=== PATIENT | male | born 1940 | race Caucasian/White ===

== ENCOUNTER → 2018-06-15 14:05 | Outpatient (CLI) | payer MEDICARE, SELFPAY ==
[2018-06-15 15:07] LABS: Hemoglobin A1C% w Est Avg Glu 6.3 % (4.0-6.0)
[2018-06-15 15:24] LABS: BUN Creatinine Ratio 17.3 (6-22); Blood Urea Nitrogen 19 mg/dL (9-20); Carbon Dioxide 29 mmol/L (22-32); Chloride 103 mmol/L (98-107); Cholesterol 146 mg/dL (140-199); Estimated Glomerular Filt Rate > 60.0 mL/min (>60); Glucose 107 mg/dL (80-110); HDL Cholesterol 40 mg/dL (40-60); HEMOLYSIS 27 (0-50); LDL Cholesterol Calculated 68 mg/dL (<100); Potassium 4.2 mmol/L (3.4-5.1); Sodium 145 mmol/L (137-145); Triglycerides 192 mg/dL (35-150)
== END ==
PROVIDERS: PCP Internal Medicine; Visit Provider Internal Medicine
DX: E11.65 Type 2 diabetes mellitus with hyperglycemia (principal)
CPT/HCPCS: 36415; 80048; 80061; 83036

== ENCOUNTER → 2020-02-13 15:49 | Outpatient (CLI) | payer MEDICARE, SELFPAY | PROVIDERS: PCP Internal Medicine; Referring Provider Internal Medicine; Visit Provider Internal Medicine | DX: Z20.828 Contact with and (suspected) exposure to other viral communicable diseases (principal) | CPT/HCPCS: 36415; 86769 ==

== ENCOUNTER → 2020-03-27 11:26 | Outpatient (CLI) | payer MEDICARE, SELFPAY ==
[2020-03-27 12:21] LABS: Add Manual Diff / Slide Review NO; Basophils Absolute Auto 0 /uL (0-100); Basophils Percent Auto 0.4 % (0-2); Eosinophils Absolute Auto 200 /uL (0-450); Eosinophils Percent Auto 2.4 % (2-4); Hematocrit 34.8 % (41-53); Hemoglobin 12.1 g/dL (13.5-17.5); Lymphocytes Absolute Auto 2200 /uL (1100-4500); Lymphocytes Percent Auto 28.1 % (25-40); Mean Corpuscular HGB Conc 34.8 % (30-36); Mean Corpuscular Hemoglobin 29.7 PG (26-34); Mean Corpuscular Volume 85.4 fL (80-100); Monocytes Absolute Auto 600 /uL (0-900); Monocytes Percent Auto 7.5 % (3-14); Neutrophils Absolute Auto 4900 /uL (1500-7000); Neutrophils Percent Auto 61.6 % (50-75); Platelet Count 166 X10^3/uL (150-400); Red Blood Cell Count 4.08 X10^6/uL (4.5-5.9); Red Cell Distribution Width 13.2 % (11.6-14.8)
[2020-03-27 12:57] LABS: Erythrocyte Sedimentation Rate 45 MM/HR (0-15)
== END ==
PROVIDERS: PCP Internal Medicine; Referring Provider Internal Medicine; Visit Provider Internal Medicine
DX: E11.9 Type 2 diabetes mellitus without complications (principal); M10.00 Idiopathic gout, unspecified site
CPT/HCPCS: 36415; 85025; 85651

== ENCOUNTER → 2020-03-31 16:32 | Outpatient (CLI) | payer MEDICARE, SELFPAY ==
[2020-03-31 18:58] LABS: Uric Acid 7.3 mg/dL (3.5-8.5)
== END ==
PROVIDERS: PCP Internal Medicine; Referring Provider Internal Medicine; Visit Provider Internal Medicine
DX: M10.00 Idiopathic gout, unspecified site (principal)
CPT/HCPCS: 36415; 84550

== ENCOUNTER 2020-05-05 19:34 | Inpatient (IN) | payer MEDICARE, SELFPAY ==
[2020-05-05] VITALS (9 sets, daily range): BP systolic 151–213; BP diastolic 79–99; PULSE 59–86; RESP 3–22; TEMP 36.6–36.7; O2SAT 95–98; BMI 27.3
--- NOTE | 2020-05-05 19:39 | DI.CT.S_ITS ---
PROCEDURE: CT ANGIO HEAD AND NECK INDICATIONS: stroke TECHNIQUE: Pre-contrast 4.5 mm thick sections acquired from the foramen magnum to the vertex. After the administration of intravenous contrast, 1 mm thick sections acquired from the aortic arch through the [place] of [place]. Post-contrast 4.5 mm thick sections then re-acquired from the foramen magnum to the vertex. 3-dimensional iwnsbfs-lipszqyjd-stcnuqzisu (MIP) and/or volume rendering reformats were acquired of the central intracranial vasculature and neck separately. COMPARISON: [facility], CT, CT STROKE, 05/05/2020, 19:36. [facility], MR, MR STROKE PROTOCOL, 12/29/2017, 8:39. [facility], CT, HEAD WITHOUT CONTRAST, 12/26/2017, 18:48. FINDINGS: Image quality: Excellent. BRAIN: CSF spaces: Ventricles are normal in size and shape. Basal cisterns are patent. No extra-axial fluid collections. Brain: No midline shift. No intracranial bleeds or masses. Hypodensity redemonstrated in the left thalamus concerning for subacute infarct. Chronic left frontal and left parietal small infarction noted. Chronic right cerebellar hemisphere infarct. Skull and face: Calvarium and facial bones appear intact, without suspicious lesions. Orbits appear normal. Sinuses: Mucosal thickening noted in the maxillary sinuses bilaterally. mastoids are clear. HEAD CT ANGIOGRAPHY: Anterior circulation: Intracranial internal carotid arteries are normal in flow. Dense atherosclerotic calcifications noted in the cavernous and clinoid segments of the internal carotid arteries which causes multifocal moderate severe stenosis. The flow within the paired anterior cerebral arteries is normal and symmetric. 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 Atherosclerotic irregularity noted in the M1 segments of the middle cerebral arteries bilaterally which causes moderate multifocal stenoses in the right middle cerebral artery and left middle cerebral artery with focal, short segment, high-grade stenosis in the distal M1 segment of the left middle cerebral artery. The flow within the middle cerebral arteries is normal and symmetric. The anterior communicating artery is seen. No aneurysms are seen. Posterior circulation: Visualized portions of the vertebral arteries demonstrate normal caliber, and join to form a normal appearing basilar artery. Flow within the posterior cerebral arteries is normal and symmetric. The right posterior cerebral artery is origin. No aneurysms are seen. Dural sinuses demonstrate normal postcontrast enhancement. NECK CT ANGIOGRAPHY: Carotid system: The great vessels demonstrate a conventional anatomy as they arise from the aortic arch. The origins of the common carotid arteries appear patent. The common carotid arteries demonstrate normal caliber and courses. Atherosclerotic calcifications noted in the origins of the internal carotid arteries bilaterally which causes less than 50% stenosis of the right internal carotid artery and moderate, approximately 60-69% stenosis of the origin of the left internal carotid artery. Posterior circulation: The origins of the vertebral arteries both appear widely patent. 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 The more superior extracranial portions of both vertebral arteries also demonstrate normal courses and calibers. They join to form a normal appearing basilar artery. Soft tissues: Visualized neck soft tissues demonstrate no suspicious abnormalities. Bones: No suspicious bony lesions. Spine degenerative disc disease and facet arthropathy. Visualized cervical spine appears normally aligned. IMPRESSION: 1. Subacute left thalamic lacunar infarct. 2. Chronic left frontal, left parietal and right cerebellar hemisphere small infarcts. 3. No intracranial hemorrhage. 4. No large vessel occlusion, vascular dissection or aneurysm. 6. Multifocal moderate and high-grade stenoses involving the cavernous and supraclinoid segments of the internal carotid arteries bilaterally. 6. Short segment, high-grade stenosis involving the distal M1 segment left middle cerebral artery. 7. 60-69% stenosis of the origin of the left internal carotid artery. 8. Less than 50% stenosis of the origin of the right internal carotid artery. 9. Vertebral arteries are fully patent. Any quantitative measurements of stenosis were performed using NASCET criteria. Dictated by: Ida Chung MD, PhD on 05/05/2020 at 20:11 Approved by: Ida Chung MD, PhD on 05/05/2020 at 20:20
--- NOTE | 2020-05-05 19:39 | DI.CT.S_ITS ---
PROCEDURE: CT STROKE INDICATIONS: stroke-TPA CANDIDATE TECHNIQUE: Noncontrast 4.5 mm thick angled axial sections acquired from the foramen magnum to the vertex, with coronal reformats. For radiation dose reduction, the following was used: automated exposure control, adjustment of mA and/or kV according to patient size. COMPARISON: [facility], MR, MR STROKE PROTOCOL, 12/29/2017, 8:39. [facility], CT, HEAD WITHOUT CONTRAST, 12/26/2017, 18:48. FINDINGS: Image quality: Excellent. CSF spaces: Basal cisterns are patent. No extra-axial fluid collections. The ventricles are symmetric in size and shape. Brain: No intracranial bleeds or masses. There is cerebral volume loss for age, with resultant ventricular and sulcal prominence. There are periventricular and deep white matter chronic small vessel ischemic changes. Hypodensity noted in the left thalamus suspicious for subacute infarct. Chronic left small left frontal and parietal infarcts. Chronic right cerebellar hemisphere infarct is stable There is intracranial internal carotid artery atherosclerosis. Skull and face: Calvarium and visualized facial bones appear intact, without suspicious lesions. Sinuses: Visualized sinuses and mastoids are clear. IMPRESSION: 1. Probable subacute left thalamic lacunar infarct. 2. No intracranial hemorrhage. 3. Findings telephoned to Dr. Ruiz and on May 05, 2020 at 7:51 p.m.. This study fulfills neurological imaging criteria for inclusion or exclusion of acute stroke therapies based on available published neurological guidelines. Dictated by: Ida Chung MD, PhD on 05/05/2020 at 19:50 Approved by: Ida Chung MD, PhD on 05/05/2020 at 19:55
--- NOTE | 2020-05-05 19:51 | ED.NEUROSD ---
HPI - Neuro Symptoms/Deficit General Chief Complaint: Neuro Symptoms/Deficit Stated Complaint: Thinks Possible Stroke Time Seen by Provider: 05/05/20 19:38 Source: patient and family Mode of arrival: Ambulatory Limitations: no limitations History of Present Illness HPI Narrative: 79-year-old male nonsmoker with history of hypertension, diabetes and prior TIA presents with his in the chief complaint of stroke-like symptoms including confusion and expressive aphasia that was 1st noticed at 5:00 p.m.. He was activated as a Code Stroke overhead and taken directly to CT for imaging. While he was out of the department further discussion with the states that his last normal was actually 1pm. [place] states he seemed normal until they got home (at 1pm). He sat down and complained of being fatigued. He took a nap and upon waking at 5pm noticed his problems. There is no complaint of vision problem or localized weakness, numbness, or tingling. He's had no change in medications or diet. Onset (ago): hour(s) Timing confirmed by: spouse Location: speech Related Data Home Medications Medication Instructions Recorded Confirmed amlodipine 5 mg PO DAILY 05/05/20 05/05/20 losartan 100 mg PO DAILY 05/05/20 05/05/20 metformin 1,000 mg PO BID 05/05/20 05/05/20 Previous Rx's Medication Instructions Recorded aspirin 325 mg PO QDAY #20 tab 12/26/17 atorvastatin [Lipitor] 40 mg PO HS #30 tab 12/26/17 Allergies Allergy/AdvReac Type Severity Reaction Status Date / Time No Known Drug Allergies Allergy Verified 05/05/20 19:45 Review of Systems Constitutional Constitutional: Denies chills, Denies fatigue, Denies fever(s), Denies frequent falls, Denies lethargy and Denies weakness Eyes Eyes: Denies change in vision, Denies eye discharge, Denies irritation and Denies loss of vision ENT Ears, Nose, Mouth, and Throat: Denies change in voice, Denies dizziness, Denies neck pain, Denies sore throat and Denies throat swelling Cardiovascular Cardiovascular: Denies chest pain, Denies irregular heart rhythm, Denies lightheadedness, Denies palpitations, Denies dyspnea, Denies dyspnea on exertion and Denies orthopnea Respiratory Respiratory: Denies cough, Denies dyspnea, Denies dyspnea on exertion and Denies wheezing Gastrointestinal Gastrointestinal: Denies abdominal pain, Denies change in bowel habits, Denies diarrhea, Denies nausea and Denies vomiting Musculoskeletal Musculoskeletal: Denies neck pain and Denies numbness Integumentary/Breasts Skin/Breast: Denies pruritus, Denies erythema, Denies rash and Denies wounds Neurologic Neurologic: Reports abnormal speech, Denies behavioral changes, Reports confusion, Denies dizziness, Denies frequent falls, Denies loss of vision, Denies numbness and Denies weakness Psychiatric Psychiatric: Denies anxiety, Denies behavioral changes, Reports confusion, Denies depression, Denies homicidal ideation and Denies suicidal ideation Endocrine Endocrine: Denies fatigue, Denies flushing and Denies palpitations Hematologic/Lymphatic Hematologic/Lymphatic: Denies easy bruising Allergic/Immunologic Allergic/Immunologic: Denies urticaria, Denies throat swelling and Denies wheezing Patient History Social History Smoking Status: Never smoker Smoking Status: Never smoker alcohol intake frequency: 0-2 drinks per day Substance Use Type: does not use Exam Narrative Exam Narrative: GENERAL: [79] year old patient appears stated age. Well-nourished, well-developed patient, in mild distress. HEAD: Atraumatic. Normocephalic. EYES: Pupils equal round and reactive. Extraocular motions intact. No scleral icterus. No injection or drainage. ENT: Nose without bleeding, purulent drainage. Throat without erythema, tonsillar hypertrophy or exudate. Airway patent. NECK: Trachea midline. Non tender CARDIOVASCULAR: Regular rate and rhythm without murmurs, gallops, or rubs. RESPIRATORY: Clear to auscultation. Breath sounds equal bilaterally. No wheezes, rales, or rhonchi. GASTROINTESTINAL: Abdomen soft, non-tender, nondistended. EXTREMITIES: No edema or joint tenderness. BACK: Nontender without deformity or crepitance. No flank tenderness. NEURO: AOx3. SKIN: No rash or erythema of visible areas Initial Vital Signs Initial Vital Signs: Vital Signs Pulse Rate 86 05/05/20 19:58 Respiratory Rate 21 05/05/20 19:58 Blood Pressure 198/95 H 05/05/20 19:58 Pulse Oximetry 98 05/05/20 19:58 Scores NIH Stroke Scale Level of Conciousness: Alert, keenly responsive Ask month/age: Answers neither question correctly, aphasic, stuporous, coma Open/close eyes, close hand: Performs both tasks correctly Best gaze horizontal: Normal Visual addison: No visual loss Facial palsy: Normal symetrical movement Left arm drift: No drift for full 10 sec Right arm drift: No drift for full 10 sec Left leg drift: No drift for full 10 sec Right leg drift: No drift for full 10 sec Limb ataxia: Absent Sensory on face/arms/legs: Mild to moderate sensory loss, can tell touch Best language: Severe aphasia, not much is understood, fragmented Dysarthria: Mild to mod,some slurring Extinction or inattention: No abnormality Total NIH Stroke scale score: 6 Course Orders Ordered: ED Orders 05/05/20 19:[address] angio head and neck Stat EKG-12 Lead Stat 05/05/20 19:49 Basic Metabolic Panel Stat Complete Blood Count AUTO DIFF Stat Partial Thromboplastin Time Stat Prothrombin Time INR Stat Acetaminophen (Tylenol) 650 mg PO Q6HR PRN PRN Reason: Fever Atorvastatin Calcium (Lipitor) 20 mg PO BEDTIME OVI Dextrose (D50w) 25 gm IV PRN PRN PRN Reason: Hypoglycemia Sodium Chloride (Normal Saline 0.9%) 1,000 mls @ 150 mls/hr IV CONT OVI Last Admin: 05/05/20 20:15 Dose: 150 mls/hr Documented by: DAYNA Insulin Aspart (Novolog Flexpen) 0 unit SUBCUT ACHS OVI; Protocol Naloxone HCl (Narcan) 0.2 mg IV Q2MIN PRN PRN Reason: Opiate Reversal Discontinued Medications Aspirin (Aspirin Chew) 324 mg PO NOW ONE Stop: 05/05/20 20:16 Last Admin: 05/05/20 20:17 Dose: 324 mg Documented by: DAYNA Consultations Consultation #1: call to Stroke Team (Pratima). Carotid stenosis can be part of follow up plan. HTN goals (below 220-230 SBP) Consultation #2: hospitalist happy to accept Vital Signs Vital signs: Vital Signs - 8 hr 05/05/20 19:58 05/05/20 19:59 05/05/20 20:00 Pulse Rate 86 84 84 Respiratory Rate 21 22 22 Blood Pressure 198/95 H 198/95 H 194/89 H Pulse Oximetry 98 98 97 05/05/20 20:30 05/05/20 21:00 Pulse Rate 82 72 Respiratory Rate 14 3 L Blood Pressure 213/99 H 178/84 H Pulse Oximetry 96 95 MDM - Neuro Symptoms/Deficit Lab Data Result diagrams: 05/05/20 19:49 05/05/20 19:49 Labs: Lab Results 05/05/20 05/05/20 05/05/20 Range/Units 19:49 19:49 19:49 WBC 10.2 (4.5-11.0) X10^3/uL RBC 4.36 L (4.5-5.9) X10^6/uL Hgb 12.9 L (13.5-17.5) g/dL Hct 36.9 L (41-53) % MCV 84.6 (80-100) fL MCH 29.7 (26-34) PG MCHC 35.0 (30-36) % RDW 13.2 (11.6-14.8) % Plt Count 181 (150-400) X10^3/uL Neut % (Auto) 67.8 (50-75) % Lymph % (Auto) 23.6 L (25-40) % [place]aine % (Auto) 5.7 (3-14) % Eos % (Auto) 2.1 (2-4) % Baso % (Auto) 0.8 (0-2) % Neut # (Auto) 6900 (0311-0522) /uL Lymph # (Auto) 2400 (3863-2483) /uL [place]aine # (Auto) 600 (0-900) /uL Eos # (Auto) 200 (0-450) /uL Baso # (Auto) 100 (0-100) /uL PT 11.5 (10.1-12.7) SECONDS INR 1.0 (0.9-1.3) APTT 35 (26.4-36.2) SECONDS Sodium 141 (137-145) mmol/L Potassium 4.4 (3.4-5.1) mmol/L Chloride 108 H (98-107) mmol/L Carbon Dioxide 21 L (22-32) mmol/L BUN 30 H (9-20) mg/dL Creatinine 1.30 H (0.66-1.25) mg/dL Estimated GFR 53.0 L (>60) mL/min BUN/Creatinine Ratio 23.1 H (6-22) Glucose 175 H (80-110) mg/dL Calcium 9.9 (8.4-10.2) mg/dL Point of Care Testing Glucose POC [address] scan - head: Radiologist's Impression: Chart Viewer Diagnostics DATE TYPE STATUS REF RANGE/AUTHOR Hx 05/05/20 19:39 05/05/20 19:39 Ida Chung John W 79, M111/10/1939 REG ER, Main ED R01 83.8kg Neuro Symptoms/Deficit Search Chart No Data to Display ONSET Today 19:58 Vasu Kaye 79 M 1940 [place] [address] CT Scan Report Signed Patient: Vasu Kaye WMR#: [id number] : 8Acct:[id number] Age/Sex: 79 / MDate of Service: 05/05/20 Loc: ED Accession Number: [id number] Procedure: CT Stroke Ordering Provider: Winston Ruiz D.O. PROCEDURE: CT STROKE INDICATIONS: stroke-TPA CANDIDATE TECHNIQUE: Noncontrast 4.5 mm thick angled axial sections acquired from the foramen magnum to the vertex, with coronal reformats. For radiation dose reduction, the following was used: automated exposure control, adjustment of mA and/or kV according to patient size. COMPARISON: [facility], MR, MR STROKE PROTOCOL, 12/29/2017, 8:39. [facility], CT, HEAD WITHOUT CONTRAST, 12/26/2017, 18:48. FINDINGS: Image quality: Excellent. CSF spaces: Basal cisterns are patent. No extra-axial fluid collections. The ventricles are symmetric in size and shape. Brain: No intracranial bleeds or masses. There is cerebral volume loss for age, with resultant ventricular and sulcal prominence. There are periventricular and deep white matter chronic small vessel ischemic changes. Hypodensity noted in the left thalamus suspicious for subacute infarct. Chronic left small left frontal and parietal infarcts. Chronic right cerebellar hemisphere infarct is stable There is intracranial internal carotid artery atherosclerosis. Skull and face: Calvarium and visualized facial bones appear intact, without suspicious lesions. Sinuses: Visualized sinuses and mastoids are clear. IMPRESSION: 1. Probable subacute left thalamic lacunar infarct. 2. No intracranial hemorrhage. 3. Findings telephoned to Dr. Ruiz and on May 05, 2020 at 7:51 p.m.. This study fulfills neurological imaging criteria for inclusion or exclusion of acute stroke therapies based on available published neurological guidelines. Dictated by: Ida Chung MD, PhD on 05/05/2020 at 19:50 Approved by: Ida Chung MD, PhD on 05/05/2020 at 19:55 CTA Head/Neck: Radiologist's Impression: 28 Winston Ruiz DO Find Patient Imaging - Vasu Kaye 79 M 1940 ACTIVITY DATE EXAM STATUS AUTHOR 05/05/20 19:39 Signed Ida Chung 05/05/20 19:39 [place] [address] CT Scan Report Signed Patient: Vasu Kyae WMR#: [id number] : [id number]:[id number] Age/Sex: 79 / MDate of Service: 05/05/20 Loc: ED Accession Number: [id number] Procedure: CT angio head and neck Ordering Provider: Winston Ruiz D.O. PROCEDURE: CT ANGIO HEAD AND NECK INDICATIONS: stroke TECHNIQUE: Pre-contrast 4.5 mm thick sections acquired from the foramen magnum to the vertex. After the administration of intravenous contrast, 1 mm thick sections acquired from the aortic arch through the [place] of [place]. Post-contrast 4.5 mm thick sections then re-acquired from the foramen magnum to the vertex. 3-dimensional nizxvhl-zbvxjodgm-gkmgkhcnox (MIP) and/or volume rendering reformats were acquired of the central intracranial vasculature and neck separately. COMPARISON: [facility], CT, CT STROKE, 05/05/2020, 19:36. [facility], MR, MR STROKE PROTOCOL, 12/29/2017, 8:39. [facility], CT, HEAD WITHOUT CONTRAST, 12/26/2017, 18:48. FINDINGS: Image quality: Excellent. BRAIN: CSF spaces: Ventricles are normal in size and shape. Basal cisterns are patent. No extra-axial fluid collections. Brain: No midline shift. No intracranial bleeds or masses. Hypodensity redemonstrated in the left thalamus concerning for subacute infarct. Chronic left frontal and left parietal small infarction noted. Chronic right cerebellar hemisphere infarct. Skull and face: Calvarium and facial bones appear intact, without suspicious lesions. Orbits appear normal. Sinuses: Mucosal thickening noted in the maxillary sinuses bilaterally. mastoids are clear. HEAD CT ANGIOGRAPHY: Anterior circulation: Intracranial internal carotid arteries are normal in flow. Dense atherosclerotic calcifications noted in the cavernous and clinoid segments of the internal carotid arteries which causes multifocal moderate severe stenosis. The flow within the paired anterior cerebral arteries is normal and symmetric. 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 Atherosclerotic irregularity noted in the M1 segments of the middle cerebral arteries bilaterally which causes moderate multifocal stenoses in the right middle cerebral artery and left middle cerebral artery with focal, short segment, high-grade stenosis in the distal M1 segment of the left middle cerebral artery. The flow within the middle cerebral arteries is normal and symmetric. The anterior communicating artery is seen. No aneurysms are seen. Posterior circulation: Visualized portions of the vertebral arteries demonstrate normal caliber, and join to form a normal appearing basilar artery. Flow within the posterior cerebral arteries is normal and symmetric. The right posterior cerebral artery is origin. No aneurysms are seen. Dural sinuses demonstrate normal postcontrast enhancement. NECK CT ANGIOGRAPHY: Carotid system: The great vessels demonstrate a conventional anatomy as they arise from the aortic arch. The origins of the common carotid arteries appear patent. The common carotid arteries demonstrate normal caliber and courses. Atherosclerotic calcifications noted in the origins of the internal carotid arteries bilaterally which causes less than 50% stenosis of the right internal carotid artery and moderate, approximately 60-69% stenosis of the origin of the left internal carotid artery. Posterior circulation: The origins of the vertebral arteries both appear widely patent. 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 The more superior extracranial portions of both vertebral arteries also demonstrate normal courses and calibers. They join to form a normal appearing basilar artery. Soft tissues: Visualized neck soft tissues demonstrate no suspicious abnormalities. Bones: No suspicious bony lesions. Spine degenerative disc disease and facet arthropathy. Visualized cervical spine appears normally aligned. IMPRESSION: 1. Subacute left thalamic lacunar infarct. 2. Chronic left frontal, left parietal and right cerebellar hemisphere small infarcts. 3. No intracranial hemorrhage. 4. No large vessel occlusion, vascular dissection or aneurysm. 6. Multifocal moderate and high-grade stenoses involving the cavernous and supraclinoid segments of the internal carotid arteries bilaterally. 6. Short segment, high-grade stenosis involving the distal M1 segment left middle cerebral artery. 7. 60-69% stenosis of the origin of the left internal carotid artery. 8. Less than 50% stenosis of the origin of the right internal carotid artery. 9. Vertebral arteries are fully patent. Any quantitative measurements of stenosis were performed using NASCET criteria. Dictated by: Ida Chung MD, PhD on 05/05/2020 at 20:11 Approved by: Ida Chung MD, PhD on 05/05/2020 at 20:20 Stroke Core Measures Exclusion Criteria TPA in CVA: Symptom Onset >3 or 4.5 Hours Critical Care Time Critical Care Time Critical Care Time: Yes Total Critical Care Time: 30 Attestation: The high probability of a clinically significant, sudden or life threatening deterioration of the [NV] system(s) required my full and direct attention, intervention and personal management. The aggregate critical care time was [30] minutes. This time is in addition to time spent performing reported procedures but includes the following: [x] Data Review and interpretation [x] Patient assessment and monitoring of vital signs [x] Documentation [x] Medication orders and management Discharge Plan Departure Patient Disposition: Admitted As Inpatient Clinical Impression: Cerebrovascular accident Qualifiers: CVA mechanism: unspecified Qualified Code(s): I63.9 - Cerebral infarction, unspecified Discharge Date/Time: 05/05/20 21:21 Referrals: Sylvester Hernandez MD [Primary Care Provider] - Admit Date/Time: 05/05/20 21:20 Admit Provider: Alisson Pérez
[2020-05-05 19:56] LABS: Add Manual Diff / Slide Review NO; Basophils Absolute Auto 100 /uL (0-100); Basophils Percent Auto 0.8 % (0-2); Eosinophils Absolute Auto 200 /uL (0-450); Eosinophils Percent Auto 2.1 % (2-4); Hematocrit 36.9 % (41-53); Hemoglobin 12.9 g/dL (13.5-17.5); Lymphocytes Absolute Auto 2400 /uL (1100-4500); Lymphocytes Percent Auto 23.6 % (25-40); Mean Corpuscular Hemoglobin 29.7 PG (26-34); Mean Corpuscular Volume 84.6 fL (80-100); Monocytes Absolute Auto 600 /uL (0-900); Monocytes Percent Auto 5.7 % (3-14); Neutrophils Absolute Auto 6900 /uL (1500-7000); Neutrophils Percent Auto 67.8 % (50-75); Platelet Count 181 X10^3/uL (150-400); Red Blood Cell Count 4.36 X10^6/uL (4.5-5.9); Red Cell Distribution Width 13.2 % (11.6-14.8); White Blood Cell Count 10.2 X10^3/uL (4.5-11.0)
[2020-05-05 20:04] LABS: Prothrombin Time 11.5 SECONDS (10.1-12.7)
[2020-05-05 20:06] LABS: PTT Partial Thromboplastin Tim 35 SECONDS (26.4-36.2)
[2020-05-05 20:07] LABS: BUN Creatinine Ratio 23.1 (6-22); Blood Urea Nitrogen 30 mg/dL (9-20); Calcium 9.9 mg/dL (8.4-10.2); Carbon Dioxide 21 mmol/L (22-32); Chloride 108 mmol/L (98-107); Glucose 175 mg/dL (80-110); HEMOLYSIS 22 (0-50); Potassium 4.4 mmol/L (3.4-5.1); Sodium 141 mmol/L (137-145)
[2020-05-05] MEDS: SODIUM CHLORIDE 0.9% 1,000 ML 150 ML IV (20:15)
[2020-05-05] MEDS: ASPIRIN 81 MG CHEW TAB 324 MG PO (20:17)
--- NOTE | 2020-05-05 20:20 | PC.NURSE ---
PT arrived to ED as Code Stroke. LNW 1300 this afternoon before laying down for a nap. per , states incoherant and reports pt kept saying i feel like i dont have a leg to stand on reports his speech at 1300 was normal for him--he has had a previous CVA in the past in which he has residual dysarthria. On arrival to ED, pt taken to and from CT for Head CT\CTA. PERRL, 2+ histology manager and pushes with LUE weaker than R. States sensation on LLE less than R. Unable to states what month or year it is. Able to speak to staff and clearly with some expressive aphasia. no slurring noted. no ataxia. no drift in any extremity. no droop and normal facial movement. pt is not a TPA candidate. swallow screen passed and ASA given. NS infusing per MAR. Awaiting admission.
--- NOTE | 2020-05-05 22:25 | PC.ADMIT ---
Addendum entered by Keke Perez R.N. 05/05/20 23:31: Per ER staff UA not collected and cancelled. Original Note: [id number] [facility] Admission Note: The patient,Vasu Kaye,79 y/o, was given written information regarding hospital policies, unit procedures and contact persons. Patient's smoking status: Never smoker. Pt arrived from ED via stretcher. Ambulated to bed. Ambulated to bathroom. Steady on feet. No walker needed. Oriented to room and call system. Denies pain. Supportive at bedside. Vital Signs - 8 hr 05/05/20 19:58 05/05/20 19:59 05/05/20 20:00 Temperature Pulse Rate 86 84 84 Respiratory Rate 21 22 22 Blood Pressure 198/95 H 198/95 H 194/89 H Pulse Oximetry 98 98 97 05/05/20 20:30 05/05/20 21:00 05/05/20 21:30 Temperature Pulse Rate 82 72 79 Respiratory Rate 14 3 L 17 Blood Pressure 213/99 H 178/84 H 211/91 H Pulse Oximetry 96 95 96 05/05/20 21:40 05/05/20 21:55 Temperature 97.9 F Pulse Rate 74 Respiratory Rate 18 Blood Pressure 182/83 H Pulse Oximetry 97 97
[2020-05-05 22:38] LABS: Hemoglobin A1C% w Est Avg Glu 6.3 % (4.0-6.0)
[2020-05-05 22:52] LABS: Creatine Kinase 40 U/L (55-170)
[2020-05-05] MEDS: ATORVASTATIN 20 MG TABLET PO (22:53)
--- NOTE | 2020-05-05 22:59 | PM.HP.1 ---
History of Present Illness History of Present Illness Date Patient Seen: 05/05/20 Time Patient Seen: 22:30 Chief complaint: Ischemic Stroke Narrative: Vasu Moise is a 79-year-old male who was in his usual state of health and returned today from about a [address] [facility]. Patient is unable to give me much of a history. When they arrived at home they ate at 4:00 p.m. and after 4:00 p.m. the made coffee for both of them which is a usual routine for them and the patient had fallen asleep. When he woke up she states that he was quite confused. He stated that he ?did not have a leg to stand on?. The asked him to stick out his tongue and it was straight but decided to have him go to the emergency department anyway. Patient denies headaches, dizziness, changes in his vision, neck pain, shortness of breath, chest pain, abdominal pain, dysuria, diarrhea or constipation. Does endorse having had a stroke previously and apparently told the medical surgical nurse that he did have some residual speech delay. in the room states that he seems to be closer to baseline. 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 Patient was unable to tell me what kind of medications he took only that he took 3 medications for high blood pressure and cholesterol, he is unable to tell me what the medications are or other doses. A note in his chart that he also takes high-dose metformin for diabetes and when I asked him for confirmation of that he did not denies that he knew what metformin was but did not seem to think he had diabetes. In the emergency department his NIH score was 6. CT of the head indicated a probable subacute left thalamic lacunar infarct and CTA of the head and neck indicated Chronic left frontal, left parietal and right cerebellar hemisphere small infarcts. and Atherosclerotic calcifications noted in the origins of the internal carotid arteries bilaterally which causes less than 50% stenosis of the right internal carotid artery and moderate, approximately 60-69% stenosis of the origin of the left internal carotid artery. Temperature is 97.9?, blood pressure 182/83, heart rate 74, respirations 18, oxygen saturation 97% on room air, he weighs 83.8 kilos and has a BMI of 27.3. WBC 10.2, RBC 34.36, hemoglobin 12.9, hematocrit 36.9, platelet count 181, sodium 141, potassium 4.4, chloride 108, CO2 21, creatinine 1.30, BUN 30, GFR is 53, glucose 175, hemoglobin A1c is 6.3, calcium 9.9, troponin is 0.012, total creatinine kinase is 40. COVID-19 was negative. Patient History Medical History CVA (cerebral vascular accident) (Acute) Diabetes (Chronic) HLD (hyperlipidemia) (Chronic) Hypertension (Chronic) Family & Social History Family History (Updated 05/05/20 @ 23:31 by ELOY Dennis) Father Diabetes mellitus Mother Old age Social History: household members spouse Prior Living Arrangements House Safety & Behavioral: Feels Safe in Current Yes Environment Suicidal Ideation Description None Tobacco & Substance use: Smoking Status Never smoker alcohol intake current alcohol intake frequency holiday/special occasion Substance Use Type does not use Meds Home Medications and Allergies Home Medications Medication Instructions Recorded Confirmed Type atorvastatin [Lipitor] 40 mg PO HS #30 tab 12/26/17 05/05/20 Rx amlodipine 5 mg PO DAILY 05/05/20 05/05/20 History aspirin 81 mg PO QDAY 05/05/20 05/05/20 History losartan 100 mg PO DAILY 05/05/20 05/05/20 History metformin 1,000 mg PO BID 05/05/20 05/05/20 History Allergies Allergy/AdvReac Type Severity Reaction Status Date / Time No Known Drug Allergies Allergy Verified 05/05/20 19:45 Review of Systems Review of Systems ROS: Yes All systems reviewed with the patient and are negative except as otherwise documented Exam Vital Signs (past 8 hours): - 05/05/20 19:58 05/05/20 19:59 05/05/20 20:00 Temperature Pulse Rate 86 84 84 Respiratory Rate 21 22 22 Blood Pressure 198/95 H 198/95 H 194/89 H Pulse Oximetry 98 98 97 05/05/20 20:30 05/05/20 21:00 05/05/20 21:30 Temperature Pulse Rate 82 72 79 Respiratory Rate 14 3 L 17 Blood Pressure 213/99 H 178/84 H 211/91 H Pulse Oximetry 96 95 96 05/05/20 21:40 05/05/20 21:55 Temperature 97.9 F Pulse Rate 74 Respiratory Rate 18 Blood Pressure 182/83 H Pulse Oximetry 97 97 Oxygen Delivery Method Room Air Narrative Exam Narrative: Gen: Alert, oriented, well-developed 79 y.o. male, somewhat lethargic HEENT: normocephalic, atraumatic, conjunctiva clear, sclera non-icteric, oral mucosa pink and moist Neck: supple, full ROM, no JVD, trachea is midline Resp: Lungs CTA, non-labored breathing CV: RRR, no murmur or rubs Abd: obese, non-tender, normoactive BTs Skin: no lesions or rashes, dry and intact Neuro: Alert and oriented to self and surroundings, no facial droop. Speech pattern is clear but delayed. Extremities: moves all 4 extremities, is ambulatory, negative Tram?s sign Psyche: normal mood and affect. Objective Labs Result Diagrams: 05/05/20 19:49 05/05/20 19:49 Labs: Laboratory Results - last 24 hr 05/05/20 05/05/20 05/05/20 19:49 19:49 19:49 WBC 10.2 RBC 4.36 L Hgb 12.9 L Hct 36.9 L MCV 84.6 MCH 29.7 MCHC 35.0 RDW 13.2 Plt Count 181 Neut % (Auto) 67.8 Lymph % (Auto) 23.6 L [place] % (Auto) 5.7 Eos % (Auto) 2.1 Baso % (Auto) 0.8 Neut # (Auto) 6900 Lymph # (Auto) 2400 [place] # (Auto) 600 Eos # (Auto) 200 Baso # (Auto) 100 PT 11.5 INR 1.0 APTT 35 Sodium 141 Potassium 4.4 Chloride 108 H Carbon Dioxide 21 L BUN 30 H Creatinine 1.30 H Estimated GFR 53.0 L BUN/Creatinine Ratio 23.1 H Glucose 175 H Hemoglobin A1c Calcium 9.9 Total Creatine Kinase CK-MB (CK-2) CK-MB (CK-2) Rel Index 05/05/20 05/05/20 19:49 19:49 WBC RBC Hgb Hct MCV MCH MCHC RDW Plt Count Neut % (Auto) Lymph % (Auto) [place] % (Auto) Eos % (Auto) Baso % (Auto) Neut # (Auto) Lymph # (Auto) [place] # (Auto) Eos # (Auto) Baso # (Auto) PT INR APTT Sodium Potassium Chloride Carbon Dioxide BUN Creatinine Estimated GFR BUN/Creatinine Ratio Glucose Hemoglobin A1c 6.3 H Calcium Total Creatine Kinase 40 L CK-MB (CK-2) TNP CK-MB (CK-2) Rel Index TNP Assessment & Plan Assessment & Plan narrative: Vasu Kaye will be admitted for further evaluation of a left thalamic lacunar infarct. CVA, left thalamic lacuar infarct, acute and present on admission -Patient did not meet criteria for thrombolytics due to time of onset and mild symptoms -Patient will be on telemetry, complete echo in the am -Allow for permissive hypertension to 220/100 for 24-48 hours to allow for brain perfusion -MRI of the head in the am -complete echocardiogram tomrrow -Start antiplatelet, ASA and plavix after MRI is done. -PT/OT evaluate and treat Hypertensive urgency, currently not well controlled, present on admission -Patient's home mediations include amlodipine and losartan and these are being held Diabetes type 2 with an A1c of 6.3, chronic and present on admission -ACHS glucose checks -Carb controlled diet Consults: none Patient is admitted under inpatient status with expected length of stay greater than 2 midnights due to severity of presenting symptoms, risk of adverse event, and complexity of treatment plan. FEN: IV saline lock, carb controlled diet, BMP in the am. VTE prophylaxis: Bilateral SCDs Dispo: Probable discharge to home Code Status: full code as discussed with patient COVID-19 COVID-19 status: Negative Result date/Date tested (Pos, Neg/Pending): 05/05/20 Scores ABCD2 Age >= 60 years: yes Initial BP. Either SBP >= 140 or DBP >= 90.: yes Clinical features of the TIA: other symptoms Duration of symptoms: 10-59 minutes History of diabetes: yes ABCD2 Score: 4 Quality Stroke Onset of Symptoms Date: 05/05/20 Onset of Symptoms Time: 12:00 Symptom Onset Unknown: Yes Rehab Services Assessed: Rehabilitation therapy
[2020-05-05 23:05] LABS: Troponin I < 0.012 ng/mL (0.01-0.034)
[2020-05-05 23:19] LABS: COVID19 -Nasal RAPID Negative (Negative)
[2020-05-06 00:03] LABS: UR Morphine/Opiate cutoff 300 Negative (Negative); Ur Creatinine Normal (Normal); Ur Specific Gravity Normal (Normal); Urine Amphetamines Negative (Negative); Urine Barbiturates Negative (Negative); Urine Benzodiazepines Negative (Negative); Urine Cocaine Negative (Negative); Urine MDMA Negative (Negative); Urine Methadone Negative (Negative); Urine Methamphetamines Negative (Negative); Urine Oxycodone Negative (Negative); Urine Phencyclidine Negative (Negative); Urine Tetrahydrocannabinol Negative (Negative); Urine Tricyclic Antidepressant Negative (Negative); Urine pH Normal (Normal)
[2020-05-06 02:37] LABS: Bacteria Urine None Seen; RBC Urine None Seen (0-5/HPF); WBC Urine None Seen (0-5/HPF)
[2020-05-06 02:38] LABS: Appearance Urine UA CLEAR; Bilirubin Urine UA NEGATIVE (NEGATIVE); Color Urine UA YELLOW; Glucose Urine UA NEGATIVE (Negative); Ketones Urine UA NEGATIVE (NEGATIVE); Leukocyte Esterase Urine UA NEGATIVE (NEGATIVE); Nitrite Urine UA NEGATIVE (Negative); Occult Blood Urine UA NEGATIVE (Negative); Protein Urine UA NEGATIVE (Negative); Urobilinogen Urine UA 0.2 E.U./dL (0.2); pH Urine UA 5.5 (4.5-8.0)
--- NOTE | 2020-05-06 02:44 | PC.NURSE ---
Pt. urinated in the urinal & GREASER HELPER noted some stone like particles in his urine. Stained his urine noted 4 pcs.of kidney stones, hospitalist ELOY Pérez notified & she ordered UAC & stone analysis. Urine & stone like specimen are sent to the lab. Pt. denies any pain or discomfort, will cont. POC & monitor.
[2020-05-06 02:54] LABS: Culture Indicated Urine Cult Not Indicated; Squamous Epithelial Cell Urine 0-1 /HPF (0-5/HPF)
[2020-05-06 04:55] VITALS: BP 150/82; PULSE 60; RESP 16; TEMP 36.3; O2SAT 97
[2020-05-06 04:57] LABS: Add Manual Diff / Slide Review NO; Basophils Absolute Auto 0 /uL (0-100); Basophils Percent Auto 0.3 % (0-2); Eosinophils Absolute Auto 300 /uL (0-450); Eosinophils Percent Auto 3.3 % (2-4); Hematocrit 34.7 % (41-53); Hemoglobin 11.8 g/dL (13.5-17.5); Lymphocytes Absolute Auto 2400 /uL (1100-4500); Lymphocytes Percent Auto 28.1 % (25-40); Mean Corpuscular HGB Conc 33.8 % (30-36); Mean Corpuscular Hemoglobin 28.8 PG (26-34); Mean Corpuscular Volume 85.1 fL (80-100); Monocytes Absolute Auto 600 /uL (0-900); Monocytes Percent Auto 7.4 % (3-14); Neutrophils Absolute Auto 5300 /uL (1500-7000); Neutrophils Percent Auto 60.9 % (50-75); Platelet Count 154 X10^3/uL (150-400); Red Blood Cell Count 4.08 X10^6/uL (4.5-5.9); Red Cell Distribution Width 13.3 % (11.6-14.8); White Blood Cell Count 8.7 X10^3/uL (4.5-11.0)
[2020-05-06 05:00] LABS: Creatine Kinase 34 U/L (55-170)
[2020-05-06 05:02] LABS: Alanine Aminotransferase 15 IU/L (<50); Albumin 4.1 g/dL (3.5-5.0); Albumin Globulin Ratio 1.6 (1.0-2.8); Alkaline Phosphatase 49 U/L (38-126); Aspartate Aminotransferase 19 IU/L (17-59); BUN Creatinine Ratio 21.1 (6-22); Bilirubin Total 0.5 mg/dL (0.2-1.3); Blood Urea Nitrogen 24 mg/dL (9-20); Calcium 9.4 mg/dL (8.4-10.2); Carbon Dioxide 26 mmol/L (22-32); Chloride 108 mmol/L (98-107); Estimated Glomerular Filt Rate > 60.0 mL/min (>60); Globulin 2.6 g/dL (1.7-4.1); Glucose 121 mg/dL (80-110); HEMOLYSIS < 15 (0-50); Magnesium 2.1 mg/dL (1.6-2.3); Potassium 4.2 mmol/L (3.4-5.1); Sodium 139 mmol/L (137-145); Total Protein 6.7 g/dL (6.3-8.2)
[2020-05-06 05:11] LABS: Cholesterol 131 mg/dL (140-199); HDL Cholesterol 32 mg/dL (40-60); LDL Cholesterol Calculated 79 mg/dL (<100); Triglycerides 100 mg/dL (35-150)
[2020-05-06 05:13] LABS: Troponin I < 0.012 ng/mL (0.01-0.034)
--- NOTE | 2020-05-06 07:45 | ST.IPIE ---
ST IP Initial Evaluation Report DISPLAY SCREEN FABRICATOR Language Evaluation Start: 05/06/20 10:15 Freq: Status: Active Protocol: Document 05/06/20 10:15 TLC (Rec: 05/06/20 10:31 TLC [id number]) Language Evaluation Session Time Visit Start Time 07:45 Visit Stop Time 08:15 Total Visit Minutes 30 Next Note Type Next Note Type Treatment Note Referral Reason for Referral CVA Past Medical History Patient History Patient was admitted yesterday for confusion and difficulty communicating which began after returning home from a trip to [place] with his . 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 Baseline information was obtained from patient chart and discussion with OT who spoke with patient's . Per , patient has trouble getting words out at baseline. Subjective Subjective Patient was seen lying in bed. His was not present in the room. - Informal Assessment Receptive Language Normal No Expressive Language Normal No Cognition Normal No Assessment Findings The Quick Aphasia Battery was administered and results are as follows: word comprehension - mild sentence comprehension - severe word finding - severe grammatical construction - severe speech motor programming - moderate repetition - mild reading - moderate Overall severity rating - moderate Patient had difficulty answering orientation questions, likely due to impaired word finding. He was able to demonstrate understanding of simple yes/no questions, but had difficulty comprehending and answering more complex or abstract yes/ no questions. His responses were delayed and on multiple occasions he requested repetition. He correctly identified 7/8 objects by pointing to a picture when named.During picture naming, he correctly named dog, but was unable to name the other 5 objects pictured. For example , when shown a picture of a pencil, he responded It's a picture...a mouse. When shown a picture of an escalator, he stated Well, I don't know what you call it. Where you go upstairs. He had difficulty with reading and many of his responses contained phonemic paraphasias such as thin for tin and prostitution for proposition. Recommendations Patient's communication skills are moderately impaired and affect both expressive and receptive language ability. 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 Additionally, impairments in comprehension affect patient's safety awareness and attention skills warranting supervision and assistance at home and during ADLs. He would benefit from outpatient speech therapy weekly in order to improve communication skills and return to baseline function. - Treatment Goals Short Term Goals Vasu will answer 8/10 yes/no questions correctly relating to his self/environment in order to improve comprehension skills. Vasu will correctly name 8/10 common objets found around his room in order to improve naming skills.
[2020-05-06 07:52] VITALS: BP 155/77; PULSE 58; RESP 15; TEMP 36.4; O2SAT 97
--- NOTE | 2020-05-06 08:00 | DI.MRI.S_ITS ---
PROCEDURE: MR STROKE Pre- and post-contrast brain MRI, non-contrast brain MR angiogram, pre- and postcontrast neck MR angiogram INDICATIONS: CVA, progression. TECHNIQUE: Brain: Noncontrast axial T1 spin echo, axial T2 fast spin echo, sagittal and axial FLAIR, coronal T2 fast spin echo, axial gradient echo, axial diffusion and ADC through the brain. After the administration of contrast, axial 3D VIBE of the cranial vasculature and brain. Brain MRA: Non-contrast 3-D time of flight MR angiogram, with multiple xpjsbnd-knxctggug-jqfpscpnnc (MIP) reformats performed. Neck MRA: Axial and sagittal TruFISP through the neck. Coronal dynamic MR angiogram during administration of contrast in the arterial and venous phases, with 3-dimenstional bjshtov-iiqrzbbqv-lftnoqtdjh (MIP) reformats constructed from subtraction images. COMPARISON: [facility], CT, HEAD WITHOUT CONTRAST, 12/26/2017, 18:48. [facility], MR, MR STROKE PROTOCOL, 12/29/2017, 8:39. [facility], CT, CT ANGIO HEAD AND NECK, 05/05/2020, 19:44. [facility], CT, CT STROKE, 05/05/2020, 19:36. FINDINGS: Image quality: Excellent. BRAIN: CSF spaces: Ventricles are normal in size and shape. Basal cisterns are patent. No extra-axial fluid collections. Brain: There is restricted diffusion in the left thalamus consistent with acute infarction. There is small old cortical infarct in the left frontoparietal lobe with encephalomalacia. No intracranial bleeds or mass effects. There is moderate cerebral volume loss. Moderate to severe periventricular white matter chronic small vessel ischemic changes are present. Brainstem appears normal. Normal intravascular flow voids are present. No abnormal intracranial enhancement. Skull and face: Calvarial marrow signal is normal. Orbits appear normal. Sinuses: Sinuses and mastoids are clear. BRAIN MR ANGIOGRAM: Anterior circulation: Diffuse irregularity in the supraclinoid intracranial internal carotid arteries bilaterally but no high-grade stenosis or occlusion. The flow within the paired anterior cerebral arteries is normal and symmetric. There is high-grade stenosis to near-occlusion of the M1 segment of the left middle cerebral artery. The right middle cerebral artery is patent without hemodynamic significant stenosis. The anterior communicating artery is seen. No stenoses, occlusions, or aneurysms. Posterior circulation: The visualized portions of the vertebral arteries demonstrate normal caliber, and join to form a normal appearing basilar artery. There is origin of the right posterior cerebral artery. The flow within the posterior cerebral arteries is normal and symmetric. No stenoses, occlusions, or aneurysms. NECK MR ANGIOGRAM: Carotids: Great vessels demonstrate a conventional anatomy as they arise from the aortic arch. The origins of the common carotid arteries appear patent. The calibers and courses of both common carotid arteries are normal. The bifurcation regions appear normal bilaterally. The internal carotid arteries demonstrate normal course and caliber. Posterior circulation: The origins of the vertebral arteries appear patent. More superior portions of both vertebral arteries demonstrate normal course and caliber, and join to form a normal appearing basilar artery. Miscellaneous: Subclavian arteries appear patent. Pre-contrast images through the neck show no soft tissue abnormalities. IMPRESSION: BRAIN MRI: 1. Acute cerebral infarction involving the left thalamus. No hemorrhagic transformation. 2. Old infarct in the left frontal parietal lobe. 3. Cerebral volume loss and chronic microvascular ischemic changes. BRAIN MR ANGIOGRAM: 1. 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 2. Diffuse irregularity of the supraclinoid internal carotid arteries bilaterally but no high-grade stenosis or occlusion. 3. No high-grade stenosis or occlusion in posterior circulations. NECK MR ANGIOGRAM: 1. No high-grade stenosis or occlusion in cervical carotid arteries bilaterally. 2. No high-grade stenosis or occlusion in cervical vertebral arteries bilaterally. Dictated by: Shefali Ortiz M.D. on 05/06/2020 at 15:52 Approved by: Shefali Ortiz M.D. on 05/06/2020 at 16:11
--- NOTE | 2020-05-06 08:55 | OT.IP.EVAL ---
Current Diagnoses Cerebral infarction, unspecified (05/05/20) Past Medical History (Last Reviewed 05/05/20 @ 23:30 by ELOY Dennis) CVA (cerebral vascular accident) (Acute) Diabetes (Chronic) HLD (hyperlipidemia) (Chronic) Hypertension (Chronic) Occupational Therapy Inpatient Evaluation/Re-Eval M1 PT/OT-IP Prior Functional Status Start: 05/06/20 09:46 Freq: NEEDED Status: Active Protocol: Document 05/06/20 09:46 [facility] (Rec: 05/06/20 10:37 [facility] [id number]) Medical Review Prior Functional Status Medical History Reviewed Yes Communication Pt states prior has a little difficulty to get the words out at times. Mobility and Gait Independent with no devices. 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 Prior Functional Level (Other details) Pt had a TIA 12/26/17 per chart had right weakness and per pt difficulty to get the words out. Social History Household Members spouse Living Arrangements House Number of Floors (Floors) Two Floors Number of Stairs To Enter/Railing? Pt states has 2 steps to enter with bilateral wide rails and prior did not use the railing to assist to help get into the house. 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 OT-IP Current Condition Start: 05/06/20 09:46 Freq: Status: Active Protocol: Document 05/06/20 09:46 [facility] (Rec: 05/06/20 10:37 [facility] [id number]) Occupational Therapy Current Condition Current Condition Evaluation Date 05/06/20 Treatment Diagnosis Subacute left thalamic lacunar infarct, decreased functional cognition M3 OT- IP Subjective and Pain Start: 05/06/20 09:46 Freq: Status: Active Protocol: Document 05/06/20 09:46 [facility] (Rec: 05/06/20 10:37 [facility] [id number]) OT- Subjective Occupational Therapy Visit Type Type Initial Evaluation Visit Start Time 08:55 Visit Stop Time 09:44 Total Visit Minutes 49 Occupational Therapy Visit Comments Patient Comments Pt agreeable to do OT eval. Patient/Caregiver Goals To go home. OT Pain Assessment Pain When Pain Assessed At Rest Pain Present Pain Present Denied Pain M4 OT- IP ADL's Start: 05/06/20 09:46 Freq: Status: Active Protocol: Document 05/06/20 09:46 [facility] (Rec: 05/06/20 10:37 [facility] [id number]) OT [id number] General Evaluation Self-Feeding Ability Independent Comments OT Self-Feeding Comments Pt able to drink independently from a cup. OT ADL-Grooming General Evaluation Grooming Ability Independent Areas Needing Assistance Retrieving/Set-up of Grooming Items Comments OT Grooming Comments after set-up , pt able to independently do grooming needs while standing. OT ADL-Oral Care General Eval Oral Care Ability Independent OT ADL-Dressing General Eval Lower Body Dressing Ability Standby Assistance Areas Needing Assistance Socks Comments OT Dressing Comments SBA pt able to dona/doff socks while seated. OT ADL-Toileting General Evaluation Toileting Ability Standby Assistance Comments OT Toileting Comments Distant superivision as pt able to sit to do toileting needs. OT ADL-Bathing Comments OT Bathing Comments NOt performed. M5 OT- IP IADL's Start: 05/06/20 09:46 Freq: Status: Active Protocol: Document 05/06/20 09:46 [facility] (Rec: 05/06/20 10:37 [facility] [id number]) OT-Instrumental Activities of Daily Living Home Safety Awareness Ability to Problem Solve Emergency Unable to Problem Solve Situations Home Safety Comments Pt not able to identify 911 in case of emergency, able to states would not answer the door in a stranger was there, able to states not to give out his credit card number if asked over the phone, able to state to turn off the water in case of toilet flooding, and pt having difficulty to states what to do in his pills ran out. Medication Management Medication Management Comments At this time would be best to have assist due to pt's confusion at times. Money Management Money Management Comments At this time would be best to have pt's assist for needs due to his confusion at times. Meal Preparation Meal Preparation Caregiver Provides Assist Palletiser Operator Palletiser Operator Caregiver Provides Assist Driving Driving Concerns Identified Regarding Safety Driving Comments Pt aware that at this time pt not safe to drive and would be best for his to drive. M6 OT- IP Functional Cognition Start: 05/06/20 09:46 Freq: Status: Active Protocol: Document 05/06/20 09:46 [facility] (Rec: 05/06/20 10:37 [facility] [id number]) Cognitive Factors Limiting Selfcare Function Cognitive Ability Level of Alertness Alert Patient Orientation Name,Month,Year,Place, Situation Attention Span Ability Capable of Focused Attention, Capable of Sustained Attention Ability to Follow Commands Able to Follow One Step Commands Problem Solving Ability Unable to Identify Errors, Needs Assist to Identify Solutions Executive Function Ability Unable to Filter Distractions, Unable to Organize Plans, Unable to Remember Details Cognitive Comments Cognitive Assessment Comments Pt needing increased time to be able to draw the numbers of the clock and not able to correctly draw in the hour hands after time given. Pt scored 7 minutes and 30 seconds on [place] Making Part B and also needing MAX vc to be able to sequence through the assessment. Normal score for pt's age is 85 seconds and pt score implies severe impairment for executive thinking, speed of processing, mental flexibility, task switching, and visual attention. Therefore recommended to pt not to drive and suggested may be best not to return to work yet as well . OT- Vision and Hearing OT- Hearing Assessment OT- Hearing Assessment WFL OT- Vision Assessment Visual Acuity Glasses All The Time Visual Attentiveness WFL Occular Pursuits WFL Visual [place] WFL M7 OT- IP Mobility and Balance Start: 05/06/20 09:46 Freq: Status: Active Protocol: Document 05/06/20 09:46 [facility] (Rec: 05/06/20 10:37 [facility] [email or web address]) OT- Bed Mobility Assessment Rolling Type of Rolling Roll to Left Level of Assistance Independent Supine to Sit Supine to Sit Assist Independent Sit to Supine Sit to Supine Assist Independent OT-Transfer Assessment Sit to and From Stand Sit to and from Stand Independent Transfers Transfer Ability Standby Assistance Technique Transfer Destination Chair,Toilet Transfer Technique Stand Step Pivot Devices Transfer Assistive Devices Gait Belt Comments Mobility Comments close SBA for dynamic movement of picking up item on the floor , climbing up and sitting to the window area, and distant SBA for in the room. OT- Balance Assessment Sitting Balance and Reactions Static Sitting Balance Ability Normal Dynamic Sitting Balance Ability Good Standing Balance and Reactions Static Standing Balance Ability Good Dynamic Standing Balance Ability Fair M8 OT- IP Objective Assessments Start: 05/06/20 09:46 Freq: Status: Active Protocol: Document 05/06/20 09:46 [facility] (Rec: 05/06/20 10:37 [facility] [id number]) OT Gross Range of Motion Upper Extremity Range of Motion Assessment Within Functional Limits OT Strength Upper Extremity Strength Assessment Within Functional Limits OT- Coordination Assessment Upper Extremity Finger to Nose Test Within Functional Limits Comments Coordination Comments 9 Hole Peg Hand test 36 seconds for right hand which for pt's age score below 10th percentile, 29 seconds for left hand which would be around 25th percentile for his age. Per pt , states his handwriting looks the same. OT-Muscle Tone Assessment Muscle Tone WNL Yes OT Sensation Assessment Location Right Hand Light Touch Intact/Normal Deep Pressure Intact/Normal Proprioception (Position) Impaired M9 OT- IP Assessment and Plan Start: 05/06/20 09:46 Freq: Status: Active Protocol: Document 05/06/20 09:46 [facility] (Rec: 05/06/20 10:37 [facility] [id number]) OT Summary Assessment and Plan Potential Rehabilitation Potential Good Analytic Complexity at Evaluation Low Summary OT Impairments Functional Cognition,Dressing, Bathing Progress Towards Goals Progressing Toward Goals Assessment Summary Pt s/p subacute left thalamic lacunar infarct who presented to ER with decreased sensation and expressive aphasia. Pt's main barrier are decreased functional cognition and expressive aphasia as pt scored 7 minutes and 30 sec. on [place] Making B which implies severe impairments for executive thinking, speed of processing, mental flexibility, task switching, and visual attention. At this time recommended that pt not drive and suggested that pt does not go back at this time. Pt would benefit from outpt EXPORT SPECIALIST for cognitive and expressive aphasia needs. Goals Self-Feeding Goal Independent Grooming Goal Independent Dressing Goal Independent Toileting Goal Independent Bathing Goal Independent Toilet Transfer Goal Independent Shower Transfer Goal Independent Days to Meet Goals 2 Frequency of Treatment Frequency Of Treatment Once a Day Treatment Plan OT Treatment Plan ADL Training,Functional Cognition Training,Patient/ Family Education,Discharge Planning Other Treatment Recommendations and Next shower Treatment Focus Discharge Recommendations OT Discharge Recommendations Home with Assistance Transportation Needs at Discharge Private Vehicle
[2020-05-06] MEDS: SODIUM CHLORIDE 0.9% FLUSH 10 ML IV ×2 (09:07→20:52)
--- NOTE | 2020-05-06 09:36 | CM.MNRNOTE ---
Day shift: Called Pt's spouse home number and left message about the questions for the MRI today. Awaiting response.
--- NOTE | 2020-05-06 10:51 | DI.ECHO.S_ITS ---
Echocardiogram Report + + :Name: CONCEPCION JUAREZ Study Date: 05/06/2020 Height: 69 in : :[facility] Weight: 184 lb : : Gender: Male BSA: 2.0 m2 : :: 1940 Age: 79 yrs BP: 182/83 mmHg: :Reason For Study: CVA : :Ordering Physician: : :CATY VAUGHN Performed By: Shilpa Bazan : :Referring: Alisson PérezP : + + Interpretation Summary The left ventricle is normal in size. There is no LV thrombus. The ejection fraction is estimated to be 60-65%. The right ventricle is normal in size and function. There is mild aortic regurgitation. Procedure: A two-dimensional transthoracic echocardiogram with color flow and Doppler was performed. The study quality was technically adequate. There is no prior echocardiogram noted for this patient. The patient was in sinus bradycardia with heart rates between 57-60 bpm during the exam. The patient had occasional PACs during the exam. Left Ventricle: The left ventricle is normal in size. There is mild concentric left ventricular hypertrophy. A false chord is noted (normal variant). There is no thrombus. The ejection fraction is estimated to be 60- 65%. There are no focal wall motion abnormalities. Diastolic parameters suggest a relaxation abnormality of the left ventricle, consistent with probable normal filling pressures. Right Ventricle: The right ventricle is normal in size and function. Atria: Both atria are normal in size. There is no Doppler evidence for an interatrial shunt. Mitral Valve: The mitral valve leaflets appear mildly thickened, but open well. There is mild mitral annular calcification. The mitral valve chordae are thickened and/or calcified. There is mild mitral regurgitation. Aortic Valve: The aortic valve is trileaflet. The aortic valve is mildly calcified. The aortic valve opens well. There is discrete nodular thickening of the right coronary cusp. There is no aortic valve stenosis. There is mild aortic regurgitation. Tricuspid Valve: The tricuspid valve is normal in structure and function. Pulmonary artery pressures cannot be estimated because of the lack of a measurable TR jet velocity but the IVC suggests a CVP of around 8 mmHg. There is a trace or physiologic amount of tricuspid regurgitation. Pulmonic Valve: The pulmonic valve is not well seen, but is grossly normal. There is trace pulmonic regurgitation. Great Vessels: The aortic root is normal size. The ascending aorta is at the upper limits of normal in size. The IVC is dilated (diameter is greater than 2.1 cm) yet it collapses greater than 50% with a sniff. This suggests a right atrial pressure of 8 mm Hg. Pericardium/ Pleura There is no pericardial effusion. There is an anterior echo-free space consistent with a fat pad. There is no pleural effusion. MMode/2D Measurements & Calculations LVIDd: 4.9 cm LVOT diam: 2.1 cm LVIDs: 3.6 cm Ao root diam: 3.3 cm FS: 27.0 % asc Aorta Diam: 3.8 cm EPSS: 0.97 cm Ao Arch Diam (Prox Trans): 3.1 cm IVSd: 1.1 cm LVPWd: 1.0 cm LV titus. diameter/BSA (cm/m^2): 2.4 LV sys. diameter/BSA (cm/m^2): 1.8 LA A2 area: 20.5 cm2 RA long axis: 5.7 cm LA A4 area: 15.1 cm2 RA area: 16.6 cm2 LA length (vol): 5.3 cm RA vol: 41.6 ml LA vol: 49.5 ml RA : 20.9 ml/m2 LA vol index: 24.8 ml/m2 IVC diam: 2.0 cm RVD1 (basal): 3.3 cm TAPSE: 2.2 cm Doppler Measurements & Calculations Ao V2 max: 129.0 cm/sec LVOT Max Lionel: 86.1 cm/sec Ao V2 mean: 86.4 cm/sec LV V1 max P.0 mmHg Ao max P.7 mmHg LV V1 VTI: 18.7 cm Ao mean P.5 mmHg LLUVIA(I,D): 2.3 cm2 Ao V2 VTI: 27.3 cm LLUVIA(V,D): 2.2 cm2 sev ratio: 0.68 LLUVIA indexed to BSA (cm^2/m^2): 1.1 MV E max lionel: 46.8 cm/sec PA V2 max: 79.3 cm/sec MV A max lionel: 73.2 cm/sec PA V2 mean: 54.5 cm/sec MV E/A: 0.64 PA mean P.3 mmHg Med Peak E' Lionel: 5.2 cm/sec PA pr(Accel): 34.5 mmHg E/E' med: 9.0 Lat Peak E' Lionel: 6.3 cm/sec E/E' lat: 7.4 E/e' average: 8.2 MV dec time: 0.28 sec SV(LVOT): 61.8 ml Reading Physician:01:11 PM
--- NOTE | 2020-05-06 11:34 | PT.IIE ---
Current Diagnoses Cerebral infarction, unspecified (05/05/20) Medical History (Last Reviewed 05/05/20 @ 23:30 by ELOY Dennis) CVA (cerebral vascular accident) (Acute) Diabetes (Chronic) HLD (hyperlipidemia) (Chronic) Hypertension (Chronic) Physical Therapy Inpatient Evaluation/Re-Eval M1 PT/OT-IP Prior Functional Status Start: 05/06/20 09:46 Freq: NEEDED Status: Active Protocol: Document 05/06/20 11:11 AW (Rec: 05/06/20 11:34 AW [id number]) Medical Review Prior Functional Status Medical History Reviewed Yes Communication Pt states prior has a little difficulty to get the words out at times. Mobility and Gait Independent with no devices. 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 Prior Functional Level (Other details) Pt had a TIA 12/26/17 per chart had right weakness and per pt difficulty to get the words out. Social History Household Members spouse Living Arrangements House Number of Floors (Floors) Two Floors Number of Stairs To Enter/Railing? Pt states has 2 steps to enter with bilateral wide rails and prior did not use the railing to assist to help get into the house. 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 M2 PT-IP Current Condition Start: 05/06/20 08:34 Freq: NEEDED Status: Active Protocol: Document 05/06/20 11:11 AW (Rec: 05/06/20 11:34 AW [id number]) Physical Therapy Current Condition Current Condition Evaluation Date 05/06/20 Treatment Diagnosis subacute L thalamic CVA; impaired speech, cognition; difficulty in walking Onset Date 05/05/20 M3 PT-IP Subjective Start: 05/06/20 08:34 Freq: NEEDED Status: Active Protocol: Document 05/06/20 11:11 AW (Rec: 05/06/20 11:34 AW [id number]) Subjective Physical Therapy Visit Type Type Initial Evaluation Visit Start Time 10:19 Visit Stop Time 10:43 Total Visit Minutes 24 Notes Pt's daughter, Rozina, present during evaluation. Physical Therapy Visit Comments Patient Comments Pt is willing to participate with PT Therapy Pain Assessment Pain When Pain Assessed During Mobility Pain Present Pain Present Denied Pain M4 PT-IP Mobility and Gait Start: 05/06/20 08:34 Freq: NEEDED Status: Active Protocol: Document 05/06/20 11:11 AW (Rec: 05/06/20 11:34 AW [id number]) PT-Bed Mobility Assessment Supine to Sit Supine to Sit Independent Scooting Scooting to Edge of Bed Independent PT-Transfer Assessment Sit to and From Stand Sit to and from Stand Independent Equipment Transfer Assistive Device Gait Belt Orthotic/Prosthetic Devices or Brace: No Transfers Transfer Destination Bed Transfer Technique pt ambulated IND Transfer Ability Level of Assist Independent Comments Mobility Comments Pt completed all bed mobility and sit to stand IND with no evidence of unsteadiness on immediate standing. He ambulated around the unit and participated in Functional Gait Assessment before returning to the room and tranferring back to the bed IND. Gait Assessment Gait Gait Assistance Required: Standby Assistance Distance (Feet) 250 Assistive Devices Assistive Device Gait Belt Gait Deviations General Gait Pattern Decreased Feet Clearance, Flexed Trunk Factors Limiting Gait Function Factors Limiting Gait Function Poor Balance,Poor Safety Awareness Comments Gait Comments Pt completed FGA with score of 21/30 which is within norms for his age-matched peers ( Korey, 2007). Single points were deducted for reduced gait speed during horizontal and vertical head turns, step over obstacle, gait with eyes closed, backward ambulation, and stairs. Three points were deducted for gait with NBOS. Stair Climbing Assessment Evaluation Level of Assist On Stairs Independent Devices Stair Climbing Assistive Devices Right Railing Technique/Endurance Stair Climbing Direction Ascend and Descend Stair Climbing Technique Step Over Step Number of Steps Climbed 3 Query Text: Stair Climbing Set # Repetitions (reps) 1 PT-Balance Assessment Sitting Balance and Reactions Static Sitting Balance Ability Normal Dynamic Sitting Balance Ability Normal Standing Balance and Reactions Static Standing Balance Ability Good Dynamic Standing Balance Ability Good Device Used no device Balance Tests Single Limb Standing <4 sec each LE Tandem Standing able to attain but not maintain position Functional Assessments Functional Tests Functional Gait Assessment 21/30 M5 PT-IP Objective Assessments Start: 05/06/20 08:34 Freq: NEEDED Status: Active Protocol: Document 05/06/20 11:11 AW (Rec: 05/06/20 11:34 AW [id number]) Orientation Orientation/Cognition Level of Alertness Confusional State Orientation Name,Month,Place,Situation Language Function Ability Expressive Aphasia Safety Awareness Decreased Safety Awareness Memory Description Short Term Impaired Comments Pt with occasional word- finding difficulty. Daughter states this is close to his baseline following prior TIA. Pt able to recall only 1/3 words given after 5 minutes of conversational distraction. Gross Range of Motion Lower Extremity ROM Assessment Within Functional Limits Strength Lower Extremity Strength Assessment Within Functional Limits Comments Strength Comments No unilateral deficits noted Coordination Assessment Gross Coordination Gross Coordination Impaired Assessment Finger to Nose Test Normal Performance Pronation/Supination Test Minimal Impairment Foot Tapping Test Normal Performance Coordination Comments Reduced speed with finger to nose but zero missed targets. Reduced speed and mild incoordination with rapid pronation/supination. Sensation Assessment Sensation Gross Sensation WNL Comments Sensation Comments Pt denies sensation disturbance. Muscle Tone Muscle Tone WNL Yes Other Assessments Other Other Assessments Normal oculomotor exam. Cranial nerves grossly normal. No resting or gaze-evoked nystagmus. M6 PT-IP Treatment Start: 05/06/20 08:34 Freq: NEEDED Status: Active Protocol: Document 05/06/20 11:11 AW (Rec: 05/06/20 11:34 AW [id number]) Physical Therapy Treatment Education Education Provided Safety Other Treatments Other Treatment Performed Reviewed signs and symptoms of stroke, emphasizing importance of timely presentation to emergency services if observed. M7 PT-IP Assessment and Plan Start: 05/06/20 08:34 Freq: NEEDED Status: Active Protocol: Document 05/06/20 11:11 AW (Rec: 05/06/20 11:34 [id number]) PT Summary Assessment and Plan Summary Impairments Balance,Cognition Assessment Summary Vasu is an active and independent 79 year old man admitted with diagnosis of subacute left thalamic CVA. He has history of chronic left frontal and parietal, right cerebellar infarcts. He is independent in all regards at baseline but has mild dysarthria resulting from prior TIA. 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 On evaluation, he completed all mobility independently. He scored 21/30 on Functional Gait Assessement which is consistent with norms for the 80-89 year-old cohort (Walker, 2007). Mobility is baseline and pt presents with no need for continued acute PT at this time. His primary limitations are related to speech and cognition. Pt may require increased assist due to cognitive status. PT defers to other rehab disciplines for recommendations to address these impairments. Frequency of Treatment Frequency Of Treatment Discharge Recommendations To Nursing Amount of Assist Needed Standby Assistance Discharge Recommendations PT Discharge Recommendations Home with Assistance Transportation Needs at Discharge Private Vehicle
[2020-05-06 11:43] VITALS: BP 165/84; PULSE 59; RESP 15; TEMP 36.5; O2SAT 94
--- NOTE | 2020-05-06 11:51 | CM.DANOTE ---
DCP assessment:EMR reviewed: Patient is an 79 yr old male who was admitted for possible Stroke. patient pcp is dr. Hernandez. CM/RN met with patient at the bedside and explained role. patient was alert and oriented x2 during CM/RN visit. Patient couldn't remember what month it was but was quickly reoriented. Patient was able to follow along with conversation but was slow in his response times. His responses were appropriate just delayed. PT and OT evaluated patient and he is doing fine with mobility but OT and Speech did say he was having some cognitive impairments. patient currently lives with his in a two story home. Patient is independent with all ADL's and drives at [employer]. 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 ECHO pending and MRI pending. I: A[employer] Medicare and self pay Plan: D/C home with when medically stable with OP Speech therapy. No identified D/C planning needs noted at this time. CM/Rn will follow to help with any new D/C planning needs that may arise. Keturah Hager RN Discharge Planning/Care Management Advanced directive, confirm from FAMILY Start: 05/05/20 22:22 Freq: Q24H Status: Complete Protocol: Document 05/05/20 22:35 GMP (Rec: 05/05/20 22:36 GMP [id number]) Advance Directive, confirm on record Time 22:35 Person contacted So- - States We don't know where it is Copy received No CM Discharge Assessment Start: 05/06/20 11:49 Freq: Status: Active Protocol: Document 05/06/20 11:50 HS (Rec: 05/06/20 11:51 HS [id number]) Discharge Planning Assessment Assigned Guide Setter Keturah Hager RN DPOA/Assigned Designee Name So Molina () Contact Information [phone] Advance Directives? Yes History Provided By Patient,Medical Record Has Patient been admitted in last 30 No days? Prior Living Arrangements House Household Members spouse Type of transporation used prior to Drives own vehicle admit Independent with ADL's Yes Is patient alert and oriented? Yes Community Services used prior to Speech Language Pathology admission: Patient/Family Preference [facility] [employer] Therapy Barriers to Discharge No Discharge Plan Home Referrals Initiated None needed Whiteboard Updated in Patient Room with Yes name and ext. # of Guide Setter Review Status In Process Next Review Type Continued Stay Review
[2020-05-06 11:56] LABS: Creatine Kinase 39 U/L (55-170)
[2020-05-06 12:09] LABS: Troponin I < 0.012 ng/mL (0.01-0.034)
[2020-05-06] MEDS: INSULIN ASPART 100 UNIT/ML INSULN PEN SUBCUT ×2 (12:09→16:39)
[2020-05-06 16:03] VITALS: BP 137/71; PULSE 61; RESP 20; TEMP 36.2; O2SAT 98
--- NOTE | 2020-05-06 16:37 | PM.PN.1 ---
Subjective Subjective Date Patient Seen: 05/06/20 Time Patient Seen: 16:59 Interval history: This is an 79-year-old male with a past medical history of hypertension, hyperlipidemia, type 2 diabetes, and prior CVA who presented with acute onset of confusion and expressive aphasia. His CTA showed a subacute infarct in the left thalamus. MRI confirmed this finding today. There is also high-grade stenosis and multiple other chronic infarcts. Given his stroke scale on admission of 6, he is at a higher risk of conversion to hemorrhagic stroke so he does not qualify for Plavix. He will continue on aspirin 81 mg daily. His Lipitor will be increased to 80 mg at night. He denies complaints today but he still seems very confused and had some difficulties with more complex tasks with occupational therapy. There have been no events on his telemetry up until this point. Exam Vital Signs (past 8 hours): - 05/06/20 11:43 05/06/20 16:03 Temperature 97.7 F 97.1 F L Pulse Rate 59 L 61 Respiratory Rate 15 20 Blood Pressure 165/84 H 137/71 Pulse Oximetry 94 98 Oxygen Delivery Method Room Air Oxygen Flow Rate 0 Narrative Exam Narrative: GENERAL APPEARANCE: Well developed, well nourished, elderly male in no acute distress. SKIN: Inspection of the skin reveals no rashes, ulcerations or petechiae. HEENT: Normocephalic atraumatic, extraocular muscles are intact, oropharynx is clear and mucous membranes are moist, neck is supple without adenopathy NECK: Supple and symmetric. There was no thyroid enlargement, and no tenderness, or masses were felt. CHEST: Normal AP diameter and normal contour without any kyphoscoliosis. LUNGS: Auscultation of the lungs revealed no wheezes, rhonchi, or rales. CARDIOVASCULAR: There was a regular rate and rhythm without any murmurs, gallops, rubs. Peripheral pulses were 2+ and symmetric. ABDOMEN: Soft and nontender with normal bowel sounds. No ascites was noted. MUSCULOSKELETAL: There was no tenderness or effusions noted. Muscle strength and tone were normal. EXTREMITIES: No cyanosis, clubbing or edema. NEUROLOGIC: Alert and oriented x2 (cannot say month or year). Somewhat reserved, slow responses. Strength is +5/5 in the Upper Extremities and Lower Extremities Bilaterally. Repetitive questioning and poor short-term memory. Rapid alternating movements are smooth and coordinated, finger to nose testing is unremarkable. Heel to campbell is unremarkable. Sensation to touch was normal bilaterally. Objective Labs Result Diagrams: 05/06/20 04:42 05/06/20 04:42 Labs: Laboratory Results - last 24 hr 05/05/20 05/05/20 05/05/20 19:49 19:49 19:49 WBC 10.2 RBC 4.36 L Hgb 12.9 L Hct 36.9 L MCV 84.6 MCH 29.7 MCHC 35.0 RDW 13.2 Plt Count 181 Neut % (Auto) 67.8 Lymph % (Auto) 23.6 L [place] % (Auto) 5.7 Eos % (Auto) 2.1 Baso % (Auto) 0.8 Neut # (Auto) 6900 Lymph # (Auto) 2400 [place] # (Auto) 600 Eos # (Auto) 200 Baso # (Auto) 100 PT 11.5 INR 1.0 APTT 35 Sodium 141 Potassium 4.4 Chloride 108 H Carbon Dioxide 21 L BUN 30 H Creatinine 1.30 H Estimated GFR 53.0 L BUN/Creatinine Ratio 23.1 H Glucose 175 H Hemoglobin A1c Calcium 9.9 Magnesium Total Bilirubin AST ALT Alkaline Phosphatase Total Creatine Kinase CK-MB (CK-2) CK-MB (CK-2) Rel Index Troponin I Total Protein Albumin Globulin Albumin/Globulin Ratio Triglycerides Cholesterol LDL Cholesterol, Calc HDL Cholesterol Urine Color Urine Appearance Urine pH Ur Specific [place] Urine Protein Urine Glucose (UA) Urine Ketones Urine Occult Blood Urine Nitrate Urine Bilirubin Urine Urobilinogen Ur Leukocyte Esterase Urine RBC Urine WBC Ur Squamous Epith Cells Urine Bacteria Ur Culture Indicated? U Opiates 300ng/mL cut Ur Oxycodone Screen Urine Methadone Screen Ur Barbiturates Screen U Tricyclic Antidepress Ur Phencyclidine Scrn Ur Amphetamines Screen U Methamphetamines Scrn Ur MDMA Scrn (Ecstasy) U Benzodiazepines Scrn Urine Cocaine Screen U Marijuana (THC) Screen COVID-19 PCR 05/05/20 05/05/20 05/05/20 19:49 19:49 21:32 WBC RBC Hgb Hct MCV MCH MCHC RDW Plt Count Neut % (Auto) Lymph % (Auto) [place] % (Auto) Eos % (Auto) Baso % (Auto) Neut # (Auto) Lymph # (Auto) [place] # (Auto) Eos # (Auto) Baso # (Auto) PT INR APTT Sodium Potassium Chloride Carbon Dioxide BUN Creatinine Estimated GFR BUN/Creatinine Ratio Glucose Hemoglobin A1c 6.3 H Calcium Magnesium Total Bilirubin AST ALT Alkaline Phosphatase Total Creatine Kinase 40 L CK-MB (CK-2) TNP CK-MB (CK-2) Rel Index TNP Troponin I < 0.012 Total Protein Albumin Globulin Albumin/Globulin Ratio Triglycerides Cholesterol LDL Cholesterol, Calc HDL Cholesterol Urine Color Urine Appearance Urine pH Ur Specific [place] Urine Protein Urine Glucose (UA) Urine Ketones Urine Occult Blood Urine Nitrate Urine Bilirubin Urine Urobilinogen Ur Leukocyte Esterase Urine RBC Urine WBC Ur Squamous Epith Cells Urine Bacteria Ur Culture Indicated? U Opiates 300ng/mL cut Ur Oxycodone Screen Urine Methadone Screen Ur Barbiturates Screen U Tricyclic Antidepress Ur Phencyclidine Scrn Ur Amphetamines Screen U Methamphetamines Scrn Ur MDMA Scrn (Ecstasy) U Benzodiazepines Scrn Urine Cocaine Screen U Marijuana (THC) Screen COVID-19 PCR Negative 05/05/20 05/05/20 05/06/20 23:50 23:50 04:42 WBC RBC Hgb Hct MCV MCH MCHC RDW Plt Count Neut % (Auto) Lymph % (Auto) [place] % (Auto) Eos % (Auto) Baso % (Auto) Neut # (Auto) Lymph # (Auto) [place] # (Auto) Eos # (Auto) Baso # (Auto) PT INR APTT Sodium Potassium Chloride Carbon Dioxide BUN Creatinine Estimated GFR BUN/Creatinine Ratio Glucose Hemoglobin A1c Calcium Magnesium Total Bilirubin AST ALT Alkaline Phosphatase Total Creatine Kinase CK-MB (CK-2) CK-MB (CK-2) Rel Index Troponin I Total Protein Albumin Globulin Albumin/Globulin Ratio Triglycerides 100 Cholesterol 131 L LDL Cholesterol, Calc 79 HDL Cholesterol 32 L Urine Color Yellow Urine Appearance Clear Urine pH 5.5 Ur Specific [place] 1.010 Urine Protein Negative Urine Glucose (UA) Negative Urine Ketones Negative Urine Occult Blood Negative Urine Nitrate Negative Urine Bilirubin Negative Urine Urobilinogen 0.2 Ur Leukocyte Esterase Negative Urine RBC None seen Urine WBC None seen Ur Squamous Epith Cells 0-1 /hpf Urine Bacteria None seen Ur Culture Indicated? Cult not indicated U Opiates 300ng/mL cut Negative Ur Oxycodone Screen Negative Urine Methadone Screen Negative Ur Barbiturates Screen Negative U Tricyclic Antidepress Negative Ur Phencyclidine Scrn Negative Ur Amphetamines Screen Negative U Methamphetamines Scrn Negative Ur MDMA Scrn (Ecstasy) Negative U Benzodiazepines Scrn Negative Urine Cocaine Screen Negative U Marijuana (THC) Screen Negative COVID-19 PCR 05/06/20 05/06/20 05/06/20 04:42 04:42 04:42 WBC 8.7 RBC 4.08 L Hgb 11.8 L Hct 34.7 L MCV 85.1 MCH 28.8 MCHC 33.8 RDW 13.3 Plt Count 154 Neut % (Auto) 60.9 Lymph % (Auto) 28.1 [place] % (Auto) 7.4 Eos % (Auto) 3.3 Baso % (Auto) 0.3 Neut # (Auto) 5300 Lymph # (Auto) 2400 [place] # (Auto) 600 Eos # (Auto) 300 Baso # (Auto) 0 PT INR APTT Sodium 139 Potassium 4.2 Chloride 108 H Carbon Dioxide 26 BUN 24 H Creatinine 1.14 Estimated GFR > 60.0 BUN/Creatinine Ratio 21.1 Glucose 121 H Hemoglobin A1c Calcium 9.4 Magnesium 2.1 Total Bilirubin 0.5 AST 19 ALT 15 Alkaline Phosphatase 49 Total Creatine Kinase 34 L CK-MB (CK-2) TNP CK-MB (CK-2) Rel Index TNP Troponin I < 0.012 Total Protein 6.7 Albumin 4.1 Globulin 2.6 Albumin/Globulin Ratio 1.6 Triglycerides Cholesterol LDL Cholesterol, Calc HDL Cholesterol Urine Color Urine Appearance Urine pH Ur Specific [place] Urine Protein Urine Glucose (UA) Urine Ketones Urine Occult Blood Urine Nitrate Urine Bilirubin Urine Urobilinogen Ur Leukocyte Esterase Urine RBC Urine WBC Ur Squamous Epith Cells Urine Bacteria Ur Culture Indicated? U Opiates 300ng/mL cut Ur Oxycodone Screen Urine Methadone Screen Ur Barbiturates Screen U Tricyclic Antidepress Ur Phencyclidine Scrn Ur Amphetamines Screen U Methamphetamines Scrn Ur MDMA Scrn (Ecstasy) U Benzodiazepines Scrn Urine Cocaine Screen U Marijuana (THC) Screen COVID-19 PCR 05/06/20 11:36 WBC RBC Hgb Hct MCV MCH MCHC RDW Plt Count Neut % (Auto) Lymph % (Auto) [place] % (Auto) Eos % (Auto) Baso % (Auto) Neut # (Auto) Lymph # (Auto) [place] # (Auto) Eos # (Auto) Baso # (Auto) PT INR APTT Sodium Potassium Chloride Carbon Dioxide BUN Creatinine Estimated GFR BUN/Creatinine Ratio Glucose Hemoglobin A1c Calcium Magnesium Total Bilirubin AST ALT Alkaline Phosphatase Total Creatine Kinase 39 L CK-MB (CK-2) TNP CK-MB (CK-2) Rel Index TNP Troponin I < 0.012 Total Protein Albumin Globulin Albumin/Globulin Ratio Triglycerides Cholesterol LDL Cholesterol, Calc HDL Cholesterol Urine Color Urine Appearance Urine pH Ur Specific [place] Urine Protein Urine Glucose (UA) Urine Ketones Urine Occult Blood Urine Nitrate Urine Bilirubin Urine Urobilinogen Ur Leukocyte Esterase Urine RBC Urine WBC Ur Squamous Epith Cells Urine Bacteria Ur Culture Indicated? U Opiates 300ng/mL cut Ur Oxycodone Screen Urine Methadone Screen Ur Barbiturates Screen U Tricyclic Antidepress Ur Phencyclidine Scrn Ur Amphetamines Screen U Methamphetamines Scrn Ur MDMA Scrn (Ecstasy) U Benzodiazepines Scrn Urine Cocaine Screen U Marijuana (THC) Screen COVID-19 PCR Assessment & Plan Assessment & Plan narrative: This is an 79-year-old male with a past medical history of hypertension, hyperlipidemia, type 2 diabetes, and prior CVA who presented with acute onset of confusion and expressive aphasia. His CTA showed a subacute infarct in the left thalamus. MRI confirmed this finding today. 1. CVA, left thalamic lacuar infarct, acute and present on admission -Patient did not meet criteria for thrombolytics due to time of onset and mild symptoms -telemetry has been unremarkable -permissive hypertension was allowed, however the patient's blood pressure has normalized this afternoon. He will be restarted on his home amlodipine tomorrow morning. -echocardiogram pending -continue patient's home aspirin 81 mg daily. Given NIH stroke scale of 6 on admission per ER documentation, his risk of conversion is too high to start dual antiplatelet therapy. Continue aspirin only. -continue PT/OT/speech evaluations. 2. Hypertensive urgency, currently not well controlled, present on admission -systolic blood pressures in the 190s on admission, likely in the setting of acute infarct. Patient's home medications have been held and his blood pressure has normalized today. Most recent blood pressure is 137/71. -patient is on losartan 100 mg, and amlodipine 5 mg daily. Will restart amlodipine 1st tomorrow morning. Depending on response may be able to initiate a lower dose of losartan given his current blood pressures. 3. Diabetes type 2 with an A1c of 6.3, chronic and present on admission -ACHS glucose checks -Carb controlled diet Dispo: Anticipate discharge home tomorrow if no worsening symptoms. Code: Full Quality Stroke Onset of Symptoms Date: 05/05/20 Onset of Symptoms Time: 12:00 Symptom Onset Unknown: Yes Rehab Services Assessed: Rehabilitation therapy
[2020-05-06 20:01] VITALS: BP 151/78; PULSE 61; RESP 16; TEMP 36.8; O2SAT 97
[2020-05-06] MEDS: ATORVASTATIN 20 MG TABLET 80 MG PO (20:51)
[2020-05-06 23:56] VITALS: BP 146/78; PULSE 63; RESP 16; TEMP 36.5; O2SAT 97
--- NOTE | 2020-05-07 03:33 | PC.NURSE ---
Pt pleasant and cooperative. No c/o of pain. NIH=5 w/deficits in stating month/age and expressive aphasia. Patient could read some words correctly in sentences, others were plainly incorrect. Pt was not able to state correct names for any of the pictures in the NIHSS, States, that pokes when pointing to the cactus. After scoring him, pt stated, I guess I'm not doing too good, am I. It was explained that the patient was having some difficulty putting words together and using correct words but he had not declined from previous testing. Pt stated understanding.
[2020-05-07 04:55] VITALS: BP 172/74; PULSE 57; RESP 16; TEMP 36.7; O2SAT 97
[2020-05-07 07:49] VITALS: BP 150/90; PULSE 68; RESP 15; TEMP 36.3; O2SAT 97
--- NOTE | 2020-05-07 08:21 | PM.DS.1 ---
History of Present Illness History of Present Illness Date Patient Seen: 05/07/20 Time Patient Seen: 08:21 Chief complaint: Ischemic Stroke Narrative: As per ELOY Dennis: Vasu Moise is a 79-year-old male who was in his usual state of health and returned today from about a [address] from [facility]. Patient is unable to give me much of a history. When they arrived at home they ate at 4:00 p.m. and after 4:00 p.m. the made coffee for both of them which is a usual routine for them and the patient had fallen asleep. When he woke up she states that he was quite confused. He stated that he ?did not have a leg to stand on?. The asked him to stick out his tongue and it was straight but decided to have him go to the emergency department anyway. Patient denies headaches, dizziness, changes in his vision, neck pain, shortness of breath, chest pain, abdominal pain, dysuria, diarrhea or constipation. Does endorse having had a stroke previously and apparently told the medical surgical nurse that he did have some residual speech delay. in the room states that he seems to be closer to baseline. 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 Patient was unable to tell me what kind of medications he took only that he took 3 medications for high blood pressure and cholesterol, he is unable to tell me what the medications are or other doses. A note in his chart that he also takes high-dose metformin for diabetes and when I asked him for confirmation of that he did not denies that he knew what metformin was but did not seem to think he had diabetes. In the emergency department his NIH score was 6. CT of the head indicated a probable subacute left thalamic lacunar infarct and CTA of the head and neck indicated Chronic left frontal, left parietal and right cerebellar hemisphere small infarcts. and Atherosclerotic calcifications noted in the origins of the internal carotid arteries bilaterally which causes less than 50% stenosis of the right internal carotid artery and moderate, approximately 60-69% stenosis of the origin of the left internal carotid artery. Temperature is 97.9?, blood pressure 182/83, heart rate 74, respirations 18, oxygen saturation 97% on room air, he weighs 83.8 kilos and has a BMI of 27.3. WBC 10.2, RBC 34.36, hemoglobin 12.9, hematocrit 36.9, platelet count 181, sodium 141, potassium 4.4, chloride 108, CO2 21, creatinine 1.30, BUN 30, GFR is 53, glucose 175, hemoglobin A1c is 6.3, calcium 9.9, troponin is 0.012, total creatinine kinase is 40. COVID-19 was negative. Discharge Providers Provider Date of admission: 05/05/20 21: Discharge Date: 05/07/20 Primary care physician: Sylvester Hernandez MD Consults: 05/05/20 21: Consult to Discharge Planning Routine Comment: Consult to Occupational Therapy Evaluate & Treat Comment: Physician Instructions: Evaluate and treat Consult to Physical Therapy Evaluate & Treat Comment: Physician Instructions: Evaluate and Treat Consult to Speech Therapy Evaluate & Treat Comment: Physician Instructions: Evaluate and treat Discharge provider: Leonardo Kenney DO Summary Hospital Course Discharge Diagnosis: Please see hospital course by problem list noted below. Hospital Course: This is an 79-year-old male with a past medical history of hypertension, hyperlipidemia, type 2 diabetes, and prior CVA who presented with acute onset of confusion and expressive aphasia. His CTA showed a subacute infarct in the left thalamus. MRI confirmed this finding. 1. CVA, left thalamic lacuar infarct, acute and present on admission -Patient did not meet criteria for thrombolytics due to time of onset and mild symptoms -telemetry was unremarkable -permissive hypertension was allowed, however the patient's blood pressure normalized without therapy. He was resumed on his regular medications on the day of discharge. -echocardiogram was unremarkable. -continue patient's home aspirin 81 mg daily. Given NIH stroke scale of 6 on admission per ER documentation, his risk of conversion was too high to start dual antiplatelet therapy. Continue aspirin only. -PT/OT/Speech evaluated the patient. Continue outpatient speech therapy recommended. No furhter PT or OT recommended. 2. Hypertensive urgency, currently not well controlled, present on admission -systolic blood pressures in the 190s on admission, likely in the setting of acute infarct. -patient is on losartan 100 mg, and amlodipine 5 mg daily. Can resume home medications upon discharge. 3. Diabetes type 2 with an A1c of 6.3, chronic and present on admission -good control on admission given A1c. No changes recommended to outpatient metformin Exam Vital Signs (past 8 hours): - 05/07/20 04:55 05/07/20 07:49 Temperature 98.0 F 97.3 F L Pulse Rate 57 L 68 Respiratory Rate 16 15 Blood Pressure 172/74 H 150/90 H Pulse Oximetry 97 97 Oxygen Delivery Method Room Air Oxygen Flow Rate 0 Narrative Exam Narrative: GENERAL APPEARANCE: Well developed, well nourished, elderly male in no acute distress. SKIN: Inspection of the skin reveals no rashes, ulcerations or petechiae. HEENT: Normocephalic atraumatic, extraocular muscles are intact, oropharynx is clear and mucous membranes are moist, neck is supple without adenopathy NECK: Supple and symmetric. There was no thyroid enlargement, and no tenderness, or masses were felt. CHEST: Normal AP diameter and normal contour without any kyphoscoliosis. LUNGS: Auscultation of the lungs revealed no wheezes, rhonchi, or rales. CARDIOVASCULAR: There was a regular rate and rhythm without any murmurs, gallops, rubs. Peripheral pulses were 2+ and symmetric. ABDOMEN: Soft and nontender with normal bowel sounds. No ascites was noted. MUSCULOSKELETAL: There was no tenderness or effusions noted. Muscle strength and tone were normal. EXTREMITIES: No cyanosis, clubbing or edema. NEUROLOGIC: Alert and oriented x2 (cannot say month or year). Somewhat reserved, slow responses. Strength is +5/5 in the Upper Extremities and Lower Extremities Bilaterally. Repetitive questioning and poor short-term memory. Rapid alternating movements are smooth and coordinated, finger to nose testing is unremarkable. Heel to campbell is unremarkable. Sensation to touch was normal bilaterally. Objective Labs Result Diagrams: 05/06/20 04:42 05/06/20 04:42 Labs: Laboratory Results - last 24 hr 05/06/20 11:36 Total Creatine Kinase 39 L CK-MB (CK-2) TNP CK-MB (CK-2) Rel Index TNP Troponin I < 0.012 Discharge Plan Discharge Plan Patient Disposition: Home Discharge comment: You were admitted to the hospital with a stroke. Your dose of lipitor was increased. No other medication changes are recommended. Please continue with outpatient speech therapy. Discharge orders & Medications Prescriptions: New atorvastatin 80 mg tablet 80 mg PO BEDTIME 30 Days Qty: 30 RF: 0 Continued amlodipine 5 mg tablet 5 mg PO DAILY RF: 0 metformin 1,000 mg tablet 1,000 mg PO BID RF: 0 losartan 100 mg tablet 100 mg PO DAILY RF: 0 aspirin 325 MG tablet,delayed release (DR/EC) 81 mg PO QDAY RF: 0 Discontinued atorvastatin [Lipitor] 40 MG tablet 40 mg PO HS Qty: 30 RF: 0 Follow up/Referrals: Sylvester Hernandez MD [Primary Care Provider] - 05/15/20 1:15 pm (Please check in at 1:00 PM for a 1:15 PM appointment. Appointment will be with Dr. Keturah Bonilla.) Diet/Activity/Treatments Diet: Diet as Tolerated and Low-cholesterol Activity: As tolerated Visit Report/Discharge Packet Instructions: Heart-Healthy Diet, DI for Stroke-Ischemic, How to Prevent Falls Visit Report Forms: Patient Portal/API, Stroke Signs & Symptoms Discharge Data Primary Care Provider: Sylvester Hernandez Discharges patient from system. Discharge Date/Time: 05/07/20 11:52 Quality Stroke Onset of Symptoms Date: 05/05/20 Onset of Symptoms Time: 12:00 Symptom Onset Unknown: Yes Rehab Services Assessed: Rehabilitation therapy
[2020-05-07] MEDS: SODIUM CHLORIDE 0.9% FLUSH 10 ML IV (08:33)
[2020-05-07] MEDS: ASPIRIN EC 81 MG TABLET PO (08:33)
[2020-05-07] MEDS: AMLODIPINE 5 MG TABLET PO (08:33)
--- NOTE | 2020-05-07 09:36 | OT.IP.TRT ---
Current Diagnoses Cerebral infarction, unspecified (05/05/20) Occupational Therapy Treatment Note M2 OT-IP Current Condition Start: 05/06/20 09:46 Freq: Status: Active Protocol: Document 05/06/20 09:46 [facility] (Rec: 05/06/20 10:37 [facility] [id number]) Occupational Therapy Current Condition Current Condition Evaluation Date 05/06/20 Treatment Diagnosis Subacute left thalamic lacunar infarct, decreased functional cognition M3 OT- IP Subjective and Pain Start: 05/06/20 09:46 Freq: Status: Active Protocol: Document 05/07/20 11:59 [facility] (Rec: 05/07/20 12:08 [facility] [id number]) OT- Subjective Occupational Therapy Visit Type Type Treatment Note Visit Start Time 09:36 Visit Stop Time 09:52 Total Visit Minutes 16 Occupational Therapy Visit Comments Patient Comments Pt agreeable to do Millry Making Part B again today to reassess cognitive abilities. Patient/Caregiver Goals To go home. OT Pain Assessment Pain When Pain Assessed At Rest Pain Present Pain Present Denied Pain Start: 05/06/20 09:46 Freq: Status: Active Protocol: Document 05/06/20 09:46 [facility] (Rec: 05/06/20 10:37 [facility] [id number]) OT-Instrumental Activities of Daily Living Home Safety Awareness Ability to Problem Solve Emergency Unable to Problem Solve Situations Home Safety Comments Pt not able to identify 911 in case of emergency, able to states would not answer the door in a stranger was there, able to states not to give out his credit card number if asked over the phone, able to state to turn off the water in case of toilet flooding, and pt having difficulty to states what to do in his pills ran out. Medication Management Medication Management Comments At this time would be best to have assist due to pt's confusion at times. Money Management Money Management Comments At this time would be best to have pt's assist for needs due to his confusion at times. Meal Preparation Meal Preparation Caregiver Provides Assist Fender Mechanic Fender Mechanic Caregiver Provides Assist Driving Driving Concerns Identified Regarding Safety Driving Comments Pt aware that at this time pt not safe to drive and would be best for his to drive. M6 OT- IP Functional Cognition Start: 05/06/20 09:46 Freq: Status: Active Protocol: Document 05/07/20 11:59 [facility] (Rec: 05/07/20 12:08 [facility] [id number]) Cognitive Factors Limiting Selfcare Function Cognitive Ability Level of Alertness Alert Patient Orientation Name,Month,Year,Place, Situation Attention Span Ability Capable of Focused Attention, Capable of Sustained Attention Ability to Follow Commands Able to Follow One Step Commands Problem Solving Ability Unable to Identify Errors, Needs Assist to Identify Solutions Executive Function Ability Unable to Filter Distractions, Unable to Organize Plans, Unable to Remember Details Cognitive Comments Cognitive Assessment Comments Pt able to retake Mill[employer] Making Part B and scored 7 minutes and 18 seconds and needing cue 40% of the time versus 90% yesterday. Pt is more aware of his deficits today and realizes that he is not thinking or problem solving well at this time and states will not be driving or working yet. OT- Balance Assessment Sitting Balance and Reactions Static Sitting Balance Ability Normal Dynamic Sitting Balance Ability Good Standing Balance and Reactions Static Standing Balance Ability Good Dynamic Standing Balance Ability Fair M9 OT- IP Assessment and Plan Start: 05/06/20 09:46 Freq: Status: Active Protocol: Document 05/07/20 11:59 [facility] (Rec: 05/07/20 12:08 [facility] [id number]) OT Summary Assessment and Plan Potential Rehabilitation Potential Good Analytic Complexity at Evaluation Low Summary OT Impairments Functional Cognition,Dressing, Bathing Progress Towards Goals Progressing Toward Goals Assessment Summary Pt doing better today with problem solving and insight to his deficits especially for cognitive needs. Pt still at times having difficulty to initiate his thoughts. Pt has difficulty to multitask during Millry Making B and his current score 7 minutes and 18 seconds even though improved from yesterday of 7min 30 seconds still implies has severe impairments for executive thinking, speed of processing, mental flexibility , task switching, and visual attention. Pt would benefit from outpt FIRST OFFICER AND FLIGHT INSTRUCTOR. Goals Self-Feeding Goal Independent Grooming Goal Independent Dressing Goal Independent Toileting Goal Independent Bathing Goal Independent Toilet Transfer Goal Independent Shower Transfer Goal Independent Frequency of Treatment Frequency Of Treatment Once a Day Treatment Plan OT Treatment Plan ADL Training,Functional Cognition Training,Patient/ Family Education,Discharge Planning Other Treatment Recommendations and Next shower Treatment Focus Discharge Recommendations OT Discharge Recommendations Home with Assistance Transportation Needs at Discharge Private Vehicle
--- NOTE | 2020-05-07 10:18 | ST.IPTN ---
SLASHER TENDER Treatment Note SLASHER TENDER Treatment Note Start: 05/06/20 10:15 Freq: Status: Active Protocol: Document 05/07/20 09:18 [facility] (Rec: 05/07/20 09:29 [facility] [id number]) Speech Pathology Treatment Note Session Time Visit Start Time 08:35 Visit Stop Time 08:55 Total Visit Minutes 20 Setting Treatment Setting Acute Care Visit Type Note Type Treatment Note General Information General Information Patient here for CVA. MRI confirmed Acute cerebral infarction involving the left thalamus. No hemorrhagic transformation. 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 Subjective Observations/Patient Presentation Patient upright in bed eating breakfast. Agreed to participate in therapy. Chief Complaint(s) Language Objective Short Term Goals Vasu will answer 8/10 yes/no questions correctly relating to his self/environment in order to improve comprehension skills. - great progress Vasu will correctly name 8/10 common objets found around his room in order to improve naming skills. - with moderate cueing Treatment Activities Targeted word finding for common object during confrontation naming using a cueing hierarchy. Vasu was able to correctly name spoon and cup without cues. Function cues were helpful for naming chair and phone. For more specific words such as names of fruit, Vasu required first sound/syllable or modeling of the word. He answered basic yes/no questions as well as questions pertaining to names of objects (Is this a grape?) with 90% accuracy. He was able to answer questions in conversation, and often his utterances were 5+ words in length, however, his verbal expression lacked content words and was somewhat empty. 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 He is able to communicate basic wants/needs, but has difficulty communicating more complex ideas. He agrees that outpatient speech therapy will be beneficial when he discharges from the hospital. Reviewed with Patient Progress Being Made Plan Therapy Recommendations Continue with Current Program
--- NOTE | 2020-05-07 11:53 | PC.NURSE ---
Day Shift- Pt's Brooklynn was called in to picking supervisor pt for discharge. facility planner notified of Brooklynn's arrival to pt's room, wanting to confirm OP Speech therapy. Pt was able to dress himself in is own clothes, SBA in room with steady gait, denies pain or discomfort. Does have expressive aphasia, Stated it was 1989, he's in a house. Reoriented to being in the hospital and current date. Pt needs lots of time in order to answer questions. Cooperative with care. Discharge summary packet reviewed by Jeniffer Huertas RN with pt and Brooklynn. States has all belongings upon discharge. Pt left unit in no distress at 1152 via wheelchair and [employer] OUT[employer]TER escort. Brooklynn is present to drive pt home.
[2020-06-06 10:20] LABS: Size 3X3 mm; Uric Acid 100%
== END 2020-05-07 11:52 | disposition home or self-care (01) | DRG 66 ==
LOC: ED 20:07 → AC 21:21
PROVIDERS: Admitting Provider Nurse Practitioner Family; Emergency Provider Emergency Medicine; PCP Internal Medicine; Referring Provider Emergency Medicine; Visit Provider Nurse Practitioner Family
DX: I63.81 Other cerebral infarction due to occlusion or stenosis of small artery (principal); R47.01 Aphasia; R41.0 Disorientation, unspecified; R29.706 NIHSS score 6; I16.0 Hypertensive urgency; E11.9 Type 2 diabetes mellitus without complications; E78.5 Hyperlipidemia, unspecified; I10 Essential (primary) hypertension; I69.320 Aphasia following cerebral infarction; Z79.84 Long term (current) use of oral hypoglycemic drugs
CPT/HCPCS: 36415; 70450; 70496; 70498; 70548; 70553; 80048; 80053; 80061; 80305; 81001; 82365; 82550; 82962; 83036; 83735; 84484; 85025; 85610; 85730; 87635; 92507; 92523; 93005; 93306; 94762; 96360; 96361; 97129; 97161; 97165; 97530; 99285; 99291; A9579

== ENCOUNTER 2020-12-22 16:40 | Emergency (ER) | payer MEDICARE, OTHER, SELFPAY ==
[2020-05-05 22:04] VITALS: BMI 27.3
[2020-12-22] VITALS (7 sets, daily range): BP systolic 162–221; BP diastolic 73–104; PULSE 76–90; RESP 16–18; TEMP 36.5; O2SAT 97–98; BMI 23.6
--- NOTE | 2020-12-22 16:57 | DI.CT.S_ITS ---
PROCEDURE: CT CERVICAL SPINE WO CON INDICATIONS: glf on thinners TECHNIQUE: Noncontrast 3 mm thick sections acquired from the skull base to the T4 level. Sagittal and coronal reformats were then constructed. For radiation dose reduction, the following was used: automated exposure control, adjustment of mA and/or kV according to patient size. COMPARISON: None. FINDINGS: Image quality: Excellent. Bones: No fractures or dislocations. Visualized superior ribs are intact. Diffuse cervical spondylosis and facet arthropathy. Soft tissues: Prevertebral soft tissues are normal in thickness. No paravertebral hematomas. No apical pneumothoraces. Carotid atherosclerotic plaques incidentally noted. IMPRESSION: No fracture. Chronic and degenerative changes as above. Dictated by: Spike Pérez M.D. on 12/22/2020 at 17:39 Approved by: Spike Pérez M.D. on 12/22/2020 at 17:40
--- NOTE | 2020-12-22 16:57 | DI.CT.S_ITS ---
PROCEDURE: CT HEAD/BRAIN WO CON INDICATIONS: glf on thinners TECHNIQUE: Noncontrast 4.5 mm thick angled axial sections acquired from the foramen magnum to the vertex, with coronal and sagittal reformats. For radiation dose reduction, the following was used: automated exposure control, adjustment of mA and/or kV according to patient size. COMPARISON: [facility], CT, CT CERVICAL SPINE WO CON, 12/22/2020, 17:10. [facility], CT, HEAD WITHOUT CONTRAST, 12/26/2017, 18:48. FINDINGS: Image quality: Excellent. CSF spaces: Basal cisterns are patent. No extra-axial fluid collections. The ventricles are symmetric in size and shape. 1.3 cm anterior left frontal lobe intraparenchymal hemorrhage image 18/2. There is cerebral volume loss for age, with resultant ventricular and sulcal prominence. There are periventricular and deep white matter chronic small vessel ischemic changes. There is intracranial internal carotid artery atherosclerosis. Skull and face: Calvarium and visualized facial bones appear intact, without suspicious lesions. There is a large left frontal scalp hematoma and swelling. Sinuses: Visualized sinuses and mastoids are clear. IMPRESSION: Large left frontal scalp hematoma. Anterior left frontal lobe acute intraparenchymal hemorrhage. Critical findings were personally telephoned and discussed with Fani KEYS in the emergency department at 1737 hours 12/22/20. Dictated by: Spike Pérez M.D. on 12/22/2020 at 17:29 Approved by: Spike Pérez M.D. on 12/22/2020 at 17:38
--- NOTE | 2020-12-22 16:57 | PC.NURSE ---
patient has a history of stroke and has expressive aphagia. He is alert and oriented at baseline, at beside says that he knows what he wants to say but can't find always the words. He has a contusion on his left head and his left elbow hurts. provider aware. imageing ordered
--- NOTE | 2020-12-22 17:04 | ED.FALL ---
HPI - Fall <LUDMILA Ramirez-BC - Last Filed: 12/22/20 19:28> General Chief Complaint: Trauma Stated Complaint: FALL Time Seen by Provider: 12/22/20 16:50 Source: patient and family Mode of arrival: Family Vehicle Limitations: altered mental status History of Present Illness HPI Narrative: The patient is an 80-year-old male nonsmoker with history of TIA and CVA who presents with a chief complaint of a fall. He and his were in the process of moving to [facility]. They are at their house with an barrel inspector in the [place] [facility] when the patient caught his toe in the garage, fell forward and hit his head on the cement. No loss of consciousness. Denies any other injuries, does have an abrasion on his head. Does not know when his last tetanus shot was. States that he does have a history of hypertension which is well controlled with his oral medications. Patient and are not sure whether not he is on blood thinners, though chart review illustrate he does take an aspirin a day. Chart review also reflects that he is taking Plavix. notes that he has had some expressive aphasia since his stroke. He was admitted at this facility for his stroke in April of last year. Patient states that he ?feels fine? Related Data Home Medications Medication Instructions Recorded Confirmed amlodipine 5 mg PO DAILY 05/05/20 05/05/20 aspirin 81 mg PO QDAY 05/05/20 05/05/20 losartan 100 mg PO DAILY 05/05/20 05/05/20 metformin 1,000 mg PO BID 05/05/20 05/05/20 clopidogrel 75 mg PO DAILY 12/22/20 12/22/20 Allergies Allergy/AdvReac Type Severity Reaction Status Date / Time No Known Drug Allergies Allergy Verified 12/22/20 16:53 Review of Systems <LUDMILA Ramirez-BC - Last Filed: 12/22/20 19:28> Review of Systems Narrative: GENERAL: Denies chills, fatigue, malaise, fever, sweats. HEENT: Denies sinus pain, ear pain, sore throat, difficulty swallowing, dizziness. RESPIRATORY: Denies dyspnea, cough, wheezing, hemoptysis, sputum. CARDIOVASCULAR: Denies chest pain, palpitations, orthopnea, edema, GASTROINTESTINAL: Denies nausea, vomiting, abdominal pain, diarrhea, constipation, melena. : Denies dysuria, frequency, incontinence, hematuria, urinary retention. MUSCULOSKELETAL: denies weakness, joint pain, or bony pain SKIN: See HPI NEUROLOGIC: See HPI PSYCHIATRIC: No concerning psychosocial issues. 12 point review of systems is negative except for those stated above Patient History <LES Ramirez - Last Filed: 12/22/20 19:28> Medical History (Updated 12/22/20 @ 19:09 by LES Ramirez) CVA (cerebral vascular accident) Diabetes HLD (hyperlipidemia) Hypertension Family History (Updated 05/05/20 @ 23:31 by ELOY Dennis) Father Diabetes mellitus Mother Old age Social History household members: spouse Smoking Status: Never smoker alcohol intake: current Smoking Status: Never smoker alcohol intake frequency: holidays/special occasions only Substance Use Type: does not use Exam <LES Ramirez - Last Filed: 12/22/20 19:28> Narrative Exam Narrative: GENERAL: This is a well-nourished, well-developed patient, in no acute distress with at bedside HEAD: Atraumatic. Normocephalic. No temporal or scalp tenderness. EYES: Pupils equal round and reactive. Extraocular motions intact. No scleral icterus. No injection or drainage. ENT: Nose without bleeding, purulent drainage or septal hematoma. Throat without erythema, tonsillar hypertrophy or exudate. Uvula midline. Airway patent. NECK: Trachea midline. No JVD or lymphadenopathy. Supple, nontender, no meningeal signs. CARDIOVASCULAR: Regular rate and rhythm without murmurs, gallops, or rubs. RESPIRATORY: Clear to auscultation. Breath sounds equal bilaterally. No wheezes, rales, or rhonchi. No cough. No increased respiratory effort. No accessory muscle use. GASTROINTESTINAL: Abdomen soft, non-tender, nondistended. No hepato-splenomegaly, or palpable masses. No guarding. EXTREMITIES: No clubbing, cyanosis, or edema. No joint tenderness, effusion, or edema noted. BACK: No pain to CT or L-spine palpation Nontender without deformity or crepitance. No flank tenderness. NEURO: Alert, oriented to name date of and place. States that it is 1963, states that he has issues with numbers since his CVA. Strength is equal upper lower extremities bilaterally. SKIN: Abrasions noted on right fingers, abrasion and hematoma noted to left forehead Initial Vital Signs Initial Vital Signs: Vital Signs Temperature 97.7 F 12/22/20 16:48 Pulse Rate 90 12/22/20 16:48 Respiratory Rate 18 12/22/20 16:48 Blood Pressure 221/104 H 12/22/20 16:48 Pulse Oximetry 98 12/22/20 16:48 <Dinah Sunshine DO - Last Filed: 12/23/20 09:23> Initial Vital Signs Initial Vital Signs: Vital Signs Temperature 97.7 F 12/22/20 16:48 Pulse Rate 90 12/22/20 16:48 Respiratory Rate 18 12/22/20 16:48 Blood Pressure 221/104 H 12/22/20 16:48 Pulse Oximetry 98 12/22/20 16:48 Scores <LES Ramirez - Last Filed: 12/22/20 19:28> GCS [place] coma scale eye opening: Spontaneous [place] coma scale verbal response: Orientated [place] coma scale motor response: Obey commands [place] coma scale total score: 15 Course <LES Ramirez - Last Filed: 12/22/20 19:28> Orders Ordered: Discontinued Medications Diphtheria/Tetanus/Acell Pertussis (Tet,Diph,Pertuss(Acell),Vac/Pf 0.5 Ml Syringe) 0.5 ml IM .ONCE ONE Stop: 12/22/20 17:05 Last Admin: 12/22/20 17:44 Dose: 0.5 ml Documented by: SHREE Nicardipine HCl 25 mg/ Sodium (Chloride) 250 mls @ 50 mls/hr IV TITRATE OVI; Protocol Last Admin: 12/22/20 18:19 Dose: 7.5 mg/hr, 75 mls/hr Documented by: SHREE Labetalol HCl (Labetalol 20 Mg/4 Ml Syringe) 20 mg IV NOW ONE Stop: 12/22/20 17:40 Last Admin: 12/22/20 17:44 Dose: 20 mg Documented by: SHREE Vital Signs Vital signs: Vital Signs - 8 hr 12/22/20 16:48 12/22/20 17:11 12/22/20 17:44 Temperature 97.7 F Pulse Rate 90 90 Respiratory Rate 18 16 Blood Pressure 221/104 H 196/90 H 196/87 H Pulse Oximetry 98 98 12/22/20 18:26 12/22/20 18:32 12/22/20 18:36 Temperature Pulse Rate 76 81 86 Respiratory Rate Blood Pressure 186/84 H 190/88 H Pulse Oximetry 97 98 12/22/20 18:40 Temperature Pulse Rate 83 Respiratory Rate Blood Pressure 162/73 H Pulse Oximetry 98 <Dinah Sunshine DO - Last Filed: 12/23/20 09:23> Orders Ordered: Discontinued Medications Diphtheria/Tetanus/Acell Pertussis (Tet,Diph,Pertuss(Acell),Vac/Pf 0.5 Ml Syringe) 0.5 ml IM .ONCE ONE Stop: 12/22/20 17:05 Last Admin: 12/22/20 17:44 Dose: 0.5 ml Documented by: SHREE Nicardipine HCl 25 mg/ Sodium (Chloride) 250 mls @ 50 mls/hr IV TITRATE OVI; Protocol Last Admin: 12/22/20 18:19 Dose: 7.5 mg/hr, 75 mls/hr Documented by: SHREE Labetalol HCl (Labetalol 20 Mg/4 Ml Syringe) 20 mg IV NOW ONE Stop: 12/22/20 17:40 Last Admin: 12/22/20 17:44 Dose: 20 mg Documented by: SHREE Vital Signs Vital signs: Vital Signs - 8 hr 12/22/20 16:48 12/22/20 17:11 12/22/20 17:44 Temperature 97.7 F Pulse Rate 90 90 Respiratory Rate 18 16 Blood Pressure 221/104 H 196/90 H 196/87 H Pulse Oximetry 98 98 12/22/20 18:26 12/22/20 18:32 12/22/20 18:36 Temperature Pulse Rate 76 81 86 Respiratory Rate Blood Pressure 186/84 H 190/88 H Pulse Oximetry 97 98 12/22/20 18:40 Temperature Pulse Rate 83 Respiratory Rate Blood Pressure 162/73 H Pulse Oximetry 98 MDM - Fall <LES Ramirez - Last Filed: 12/22/20 19:28> Lab Data Result diagrams: 12/22/20 17:42 12/22/20 17:42 Labs: Lab Results 12/22/20 12/22/20 12/22/20 Range/Units 17:35 17:42 17:42 WBC 9.0 (4.5-11.0) X10^3/uL RBC 4.28 L (4.5-5.9) X10^6/uL Hgb 12.4 L (13.5-17.5) g/dL Hct 36.3 L (41-53) % MCV 84.9 (80-100) fL MCH 29.0 (26-34) PG MCHC 34.1 (30-36) % RDW 13.5 (11.6-14.8) % Plt Count 160 (150-400) X10^3/uL Neut % (Auto) 73.4 (50-75) % Lymph % (Auto) 17.3 L (25-40) % [place] % (Auto) 6.7 (3-14) % Eos % (Auto) 2.2 (2-4) % Baso % (Auto) 0.4 (0-2) % Neut # (Auto) 6600 (4159-4327) /uL Lymph # (Auto) 1500 (7674-2972) /uL [place] # (Auto) 600 (0-900) /uL Eos # (Auto) 200 (0-450) /uL Baso # (Auto) 0 (0-100) /uL Sodium 140 (137-145) mmol/L Potassium 4.0 (3.4-5.1) mmol/L Chloride 104 (98-107) mmol/L Carbon Dioxide 27 (22-32) mmol/L BUN 21 H (9-20) mg/dL Creatinine 1.08 (0.66-1.25) mg/dL Estimated GFR > 60.0 (>60) mL/min BUN/Creatinine Ratio 19.4 (6-22) Glucose 130 H (80-110) mg/dL Calcium 9.7 (8.4-10.2) mg/dL Total Bilirubin 0.4 (0.2-1.3) mg/dL AST 22 (17-59) IU/L ALT 17 (<50) IU/L Alkaline Phosphatase 70 (38-126) U/L Total Protein 7.8 (6.3-8.2) g/dL Albumin 4.8 (3.5-5.0) g/dL Globulin 3.0 (1.7-4.1) g/dL Albumin/Globulin Ratio 1.6 (1.0-2.8) Lipase 69 (23-300) U/L Urine Color Urine Appearance Urine pH (4.5-8.0) Ur Specific [place] (1.000-1.035) Urine Protein (Negative) Urine Glucose (UA) (Negative) g/dL Urine Ketones (NEGATIVE) Urine Occult Blood (Negative) Urine Nitrate (Negative) Urine Bilirubin (NEGATIVE) Urine Urobilinogen (0.2) E.U./dL Ur Leukocyte Esterase (NEGATIVE) Urine RBC (0-5/HPF) Urine WBC (0-5/HPF) Ur Squamous Epith Cells (0-5/HPF) Amorphous Sediment Urine Bacteria (None) Ur Culture Indicated? Ethyl Alcohol < 10 ( - 10) mg/dL SARS-CoV-2 (PCR) Negative (Negative) Blood Type Antibody Screen 12/22/20 12/22/20 Range/Units 17:42 17:58 WBC (4.5-11.0) X10^3/uL RBC (4.5-5.9) X10^6/uL Hgb (13.5-17.5) g/dL Hct (41-53) % MCV (80-100) fL MCH (26-34) PG MCHC (30-36) % RDW (11.6-14.8) % Plt Count (150-400) X10^3/uL Neut % (Auto) (50-75) % Lymph % (Auto) (25-40) % [place] % (Auto) (3-14) % Eos % (Auto) (2-4) % Baso % (Auto) (0-2) % Neut # (Auto) (2235-2091) /uL Lymph # (Auto) (9184-9422) /uL [place] # (Auto) (0-900) /uL Eos # (Auto) (0-450) /uL Baso # (Auto) (0-100) /uL Sodium (137-145) mmol/L Potassium (3.4-5.1) mmol/L Chloride (98-107) mmol/L Carbon Dioxide (22-32) mmol/L BUN (9-20) mg/dL Creatinine (0.66-1.25) mg/dL Estimated GFR (>60) mL/min BUN/Creatinine Ratio (6-22) Glucose (80-110) mg/dL Calcium (8.4-10.2) mg/dL Total Bilirubin (0.2-1.3) mg/dL AST (17-59) IU/L ALT (<50) IU/L Alkaline Phosphatase (38-126) U/L Total Protein (6.3-8.2) g/dL Albumin (3.5-5.0) g/dL Globulin (1.7-4.1) g/dL Albumin/Globulin Ratio (1.0-2.8) Lipase (23-300) U/L Urine Color Yellow Urine Appearance Clear Urine pH 5.0 (4.5-8.0) Ur Specific [place] 1.020 (1.000-1.035) Urine Protein Negative (Negative) Urine Glucose (UA) Negative (Negative) g/dL Urine Ketones Negative (NEGATIVE) Urine Occult Blood Negative (Negative) Urine Nitrate Negative (Negative) Urine Bilirubin Negative (NEGATIVE) Urine Urobilinogen 0.2 (0.2) E.U./dL Ur Leukocyte Esterase Negative (NEGATIVE) Urine RBC None seen (0-5/HPF) Urine WBC 0-1/hpf (0-5/HPF) Ur Squamous Epith Cells 0-1 /hpf (0-5/HPF) Amorphous Sediment 1+ Urine Bacteria None seen (None) Ur Culture Indicated? Cult not indicated Ethyl Alcohol ( - 10) mg/dL SARS-CoV-2 (PCR) (Negative) Blood Type A Positive Antibody Screen Negative Imaging Data CT scan - head: Radiologist's Impression: [address] [place] [id number] Scan ReportSigned Patient: Vasu Kaye WMR#: [id number]: 8Acct:[id number]/Sex: 80 / MDate of Service: 12/22/20Loc: EDAccession Number: [id number] Procedure: CT head/brain wo con Ordering Provider: Fani Segura- PROCEDURE: CT HEAD/BRAIN WO CON INDICATIONS: glf on thinners TECHNIQUE: Noncontrast 4.5 mm thick angled axial sections acquired from the foramen magnum to the vertex, with coronal and sagittal reformats. For radiation dose reduction, the following was used: automated exposure control, adjustment of mA and/or kV according to patient size. COMPARISON: [facility], CT, CT CERVICAL SPINE WO CON, 12/22/2020, 17:10. [facility], CT, HEAD WITHOUT CONTRAST, 12/26/2017, 18:48. FINDINGS: Image quality: Excellent. CSF spaces: Basal cisterns are patent. No extra-axial fluid collections. The ventricles are symmetric in size and shape. 1.3 cm anterior left frontal lobe intraparenchymal hemorrhage image 18/2. There is cerebral volume loss for age, with resultant ventricular and sulcal prominence. There are periventricular and deep white matter chronic small vessel ischemic changes. There is intracranial internal carotid artery atherosclerosis. Skull and face: Calvarium and visualized facial bones appear intact, without suspicious lesions. There is a large left frontal scalp hematoma and swelling. Sinuses: Visualized sinuses and mastoids are clear. IMPRESSION: Large left frontal scalp hematoma. Anterior left frontal lobe acute intraparenchymal hemorrhage. Critical findings were personally telephoned and discussed with Fani KEYS in the emergency department at 1737 hours 12/22/20. Dictated by: Spike Pérez M.D. on 12/22/2020 at 17:29 Approved by: Spike Pérez M.D. on 12/22/2020 at 17:38 CT - cervical spine: Radiologist's Impression: [address] [place] [id number] Scan ReportSigned Patient: Vasu Kaye R#: [id number]: 8Acct:[id number]/Sex: 80 / MDate of Service: 12/22/20Loc: EDAccession Number: [id number] Procedure: CT head/brain wo con Ordering Provider: Fani Segura- PROCEDURE: CT HEAD/BRAIN WO CON INDICATIONS: glf on thinners TECHNIQUE: Noncontrast 4.5 mm thick angled axial sections acquired from the foramen magnum to the vertex, with coronal and sagittal reformats. For radiation dose reduction, the following was used: automated exposure control, adjustment of mA and/or kV according to patient size. COMPARISON: [facility], CT, CT CERVICAL SPINE WO CON, 12/22/2020, 17:10. [facility], CT, HEAD WITHOUT CONTRAST, 12/26/2017, 18:48. FINDINGS: Image quality: Excellent. CSF spaces: Basal cisterns are patent. No extra-axial fluid collections. The ventricles are symmetric in size and shape. 1.3 cm anterior left frontal lobe intraparenchymal hemorrhage image 18/2. There is cerebral volume loss for age, with resultant ventricular and sulcal prominence. There are periventricular and deep white matter chronic small vessel ischemic changes. There is intracranial internal carotid artery atherosclerosis. Skull and face: Calvarium and visualized facial bones appear intact, without suspicious lesions. There is a large left frontal scalp hematoma and swelling. Sinuses: Visualized sinuses and mastoids are clear. IMPRESSION: Large left frontal scalp hematoma. Anterior left frontal lobe acute intraparenchymal hemorrhage. Critical findings were personally telephoned and discussed with Fani KEYS in the emergency department at 1737 hours 12/22/20. Dictated by: Spike Pérez M.D. on 12/22/2020 at 17:29 Approved by: Spike Pérez M.D. on 12/22/2020 at 17:38 MDM Narrative Medical decision making narrative: The patient is an 80-year-old male nonsmoker who presents after ground level trip and fall hitting his head on concrete. Chart review illustrate that he had Plavix dispensed at the end of last year for several months. Patient is GCS 15, however given mechanism and history and age, CT head and C-spine were obtained. Patient was activated as a modified trauma upon arrival given mechanism. The CT head illustrate an intraparenchymal bleed. Thus I spoke with her review transfer center, the patient was accepted at [place] by Dr Tay to the emergency department. The patient was hypertensive upon arrival, was given 20 mg of labetalol. [place] [address] [place], however restarted creeping back up so nicardipine drip was started for blood pressure control. Blood pressure goals systolic 140- 160. I discussed this at length with the patient and his So, they state understanding. Patient was transferred to [facility] at 7:05 p.m., his systolic remaining in the 140-150 range <Dinah Sunshine, DO - Last Filed: 12/23/20 09:23> Lab Data Labs: Lab Results 12/22/20 12/22/2021 Range/Units 17:35 17:42 17:42 WBC 9.0 (4.5-11.0) X10^3/uL RBC 4.28 L (4.5-5.9) X10^6/uL Hgb 12.4 L (13.5-17.5) g/dL Hct 36.3 L (41-53) % MCV 84.9 (80-100) fL MCH 29.0 (26-34) PG MCHC 34.1 (30-36) % RDW 13.5 (11.6-14.8) % Plt Count 160 (150-400) X10^3/uL Neut % (Auto) 73.4 (50-75) % Lymph % (Auto) 17.3 L (25-40) % [place] % (Auto) 6.7 (3-14) % Eos % (Auto) 2.2 (2-4) % Baso % (Auto) 0.4 (0-2) % Neut # (Auto) 6600 (0183-5281) /uL Lymph # (Auto) 1500 (4164-9462) /uL [place] # (Auto) 600 (0-900) /uL Eos # (Auto) 200 (0-450) /uL Baso # (Auto) 0 (0-100) /uL Sodium 140 (137-145) mmol/L Potassium 4.0 (3.4-5.1) mmol/L Chloride 104 (98-107) mmol/L Carbon Dioxide 27 (22-32) mmol/L BUN 21 H (9-20) mg/dL Creatinine 1.08 (0.66-1.25) mg/dL Estimated GFR > 60.0 (>60) mL/min BUN/Creatinine Ratio 19.4 (6-22) Glucose 130 H (80-110) mg/dL Calcium 9.7 (8.4-10.2) mg/dL Total Bilirubin 0.4 (0.2-1.3) mg/dL AST 22 (17-59) IU/L ALT 17 (<50) IU/L Alkaline Phosphatase 70 (38-126) U/L Total Protein 7.8 (6.3-8.2) g/dL Albumin 4.8 (3.5-5.0) g/dL Globulin 3.0 (1.7-4.1) g/dL Albumin/Globulin Ratio 1.6 (1.0-2.8) Lipase 69 (23-300) U/L Urine Color Urine Appearance Urine pH (4.5-8.0) Ur Specific [place] (1.000-1.035) Urine Protein (Negative) Urine Glucose (UA) (Negative) g/dL Urine Ketones (NEGATIVE) Urine Occult Blood (Negative) Urine Nitrate (Negative) Urine Bilirubin (NEGATIVE) Urine Urobilinogen (0.2) E.U./dL Ur Leukocyte Esterase (NEGATIVE) Urine RBC (0-5/HPF) Urine WBC (0-5/HPF) Ur Squamous Epith Cells (0-5/HPF) Amorphous Sediment Urine Bacteria (None) Ur Culture Indicated? Ethyl Alcohol < 10 ( - 10) mg/dL SARS-CoV-2 (PCR) Negative (Negative) Blood Type Antibody Screen 12/22/20 12/22/20 Range/Units 17:42 17:58 WBC (4.5-11.0) X10^3/uL RBC (4.5-5.9) X10^6/uL Hgb (13.5-17.5) g/dL Hct (41-53) % MCV (80-100) fL MCH (26-34) PG MCHC (30-36) % RDW (11.6-14.8) % Plt Count (150-400) X10^3/uL Neut % (Auto) (50-75) % Lymph % (Auto) (25-40) % [place] % (Auto) (3-14) % Eos % (Auto) (2-4) % Baso % (Auto) (0-2) % Neut # (Auto) (4454-5067) /uL Lymph # (Auto) (2550-2671) /uL [place] # (Auto) (0-900) /uL Eos # (Auto) (0-450) /uL Baso # (Auto) (0-100) /uL Sodium (137-145) mmol/L Potassium (3.4-5.1) mmol/L Chloride (98-107) mmol/L Carbon Dioxide (22-32) mmol/L BUN (9-20) mg/dL Creatinine (0.66-1.25) mg/dL Estimated GFR (>60) mL/min BUN/Creatinine Ratio (6-22) Glucose (80-110) mg/dL Calcium (8.4-10.2) mg/dL Total Bilirubin (0.2-1.3) mg/dL AST (17-59) IU/L ALT (<50) IU/L Alkaline Phosphatase (38-126) U/L Total Protein (6.3-8.2) g/dL Albumin (3.5-5.0) g/dL Globulin (1.7-4.1) g/dL Albumin/Globulin Ratio (1.0-2.8) Lipase (23-300) U/L Urine Color Yellow Urine Appearance Clear Urine pH 5.0 (4.5-8.0) Ur Specific [place] 1.020 (1.000-1.035) Urine Protein Negative (Negative) Urine Glucose (UA) Negative (Negative) g/dL Urine Ketones Negative (NEGATIVE) Urine Occult Blood Negative (Negative) Urine Nitrate Negative (Negative) Urine Bilirubin Negative (NEGATIVE) Urine Urobilinogen 0.2 (0.2) E.U./dL Ur Leukocyte Esterase Negative (NEGATIVE) Urine RBC None seen (0-5/HPF) Urine WBC 0-1/hpf (0-5/HPF) Ur Squamous Epith Cells 0-1 /hpf (0-5/HPF) Amorphous Sediment 1+ Urine Bacteria None seen (None) Ur Culture Indicated? Cult not indicated Ethyl Alcohol ( - 10) mg/dL SARS-CoV-2 (PCR) (Negative) Blood Type A Positive Antibody Screen Negative Discharge Plan Departure Patient Disposition: [facility] Clinical Impression: Fall from ground level, Hematoma, Abrasion Traumatic intraparenchymal hemorrhage Qualifiers: Encounter type: initial encounter Loss of consciousness presence/duration: without LOC Qualified Code(s): S06.300A - Unspecified focal traumatic brain injury without loss of consciousness, initial encounter Prescriptions: No Action amlodipine 5 mg tablet 5 mg PO DAILY RF: 0 metformin 1,000 mg tablet 1,000 mg PO BID RF: 0 losartan 100 mg tablet 100 mg PO DAILY RF: 0 aspirin 325 MG tablet,delayed release (DR/EC) 81 mg PO QDAY RF: 0 clopidogrel 75 mg tablet 75 mg PO DAILY RF: 0 Referrals: Sylvester Hernandez MD [Primary Care Provider] - <Dinah Sunshine DO - Last Filed: 12/23/20 09:23> Cosign ED Attending Cosignature Attestation: I was immediately available in the department for consultation. Documentation has been reviewed. I agree with assessment and plan.
--- NOTE | 2020-12-22 17:13 | PC.NURSE ---
patient has a history of stroke. He is unable to express where he is but the says he knows but can't always say
[2020-12-22] MEDS: TET,DIPH,PERTUSS(ACELL),VAC/PF 0.5 ML SYRINGE IM (17:44)
[2020-12-22] MEDS: LABETALOL 20 MG/4 ML SYRINGE IV (17:44)
[2020-12-22 17:46] LABS: Add Manual Diff / Slide Review NO; Basophils Absolute Auto 0 /uL (0-100); Basophils Percent Auto 0.4 % (0-2); Eosinophils Absolute Auto 200 /uL (0-450); Eosinophils Percent Auto 2.2 % (2-4); Hematocrit 36.3 % (41-53); Hemoglobin 12.4 g/dL (13.5-17.5); Lymphocytes Absolute Auto 1500 /uL (1100-4500); Lymphocytes Percent Auto 17.3 % (25-40); Mean Corpuscular HGB Conc 34.1 % (30-36); Mean Corpuscular Volume 84.9 fL (80-100); Monocytes Absolute Auto 600 /uL (0-900); Monocytes Percent Auto 6.7 % (3-14); Neutrophils Absolute Auto 6600 /uL (1500-7000); Neutrophils Percent Auto 73.4 % (50-75); Platelet Count 160 X10^3/uL (150-400); Red Blood Cell Count 4.28 X10^6/uL (4.5-5.9); Red Cell Distribution Width 13.5 % (11.6-14.8)
[2020-12-22 17:58] LABS: COVID19 -Nasal RAPID Negative (Negative)
[2020-12-22 18:00] LABS: Alanine Aminotransferase 17 IU/L (<50); Albumin 4.8 g/dL (3.5-5.0); Albumin Globulin Ratio 1.6 (1.0-2.8); Alkaline Phosphatase 70 U/L (38-126); Aspartate Aminotransferase 22 IU/L (17-59); BUN Creatinine Ratio 19.4 (6-22); Bilirubin Total 0.4 mg/dL (0.2-1.3); Blood Urea Nitrogen 21 mg/dL (9-20); Calcium 9.7 mg/dL (8.4-10.2); Carbon Dioxide 27 mmol/L (22-32); Chloride 104 mmol/L (98-107); Estimated Glomerular Filt Rate > 60.0 mL/min (>60); Ethanol (ETOH) < 10 mg/dL; Glucose 130 mg/dL (80-110); HEMOLYSIS < 15 (0-50); Lipase 69 U/L (23-300); Sodium 140 mmol/L (137-145); Total Protein 7.8 g/dL (6.3-8.2)
[2020-12-22] MEDS: NICARDIPINE 25 MG in SODIUM CHLORIDE 0.9% 240 ML 75 ML IV (18:19)
[2020-12-22 19:24] LABS: Bacteria Urine None Seen; RBC Urine None Seen (0-5/HPF)
[2020-12-22 19:25] LABS: Appearance Urine UA CLEAR; Bilirubin Urine UA NEGATIVE (NEGATIVE); Color Urine UA YELLOW; Glucose Urine UA NEGATIVE (Negative); Ketones Urine UA NEGATIVE (NEGATIVE); Leukocyte Esterase Urine UA NEGATIVE (NEGATIVE); Nitrite Urine UA NEGATIVE (Negative); Occult Blood Urine UA NEGATIVE (Negative); Protein Urine UA NEGATIVE (Negative); Urobilinogen Urine UA 0.2 E.U./dL (0.2)
[2020-12-22 19:44] LABS: Amorphous Sediment Urine 1+; Culture Indicated Urine Cult Not Indicated; Squamous Epithelial Cell Urine 0-1 /HPF (0-5/HPF); WBC Urine 0-1/HPF (0-5/HPF)
--- NOTE | 2021-01-01 10:54 | PC.NURSE ---
Patient's Nicardipine drip was stopped at 1938
== END 2020-12-22 19:39 | disposition short-term general hospital (02) ==
PROVIDERS: Emergency Provider Nurse Practitioner Family; PCP Internal Medicine
DX: S06.300A Unspecified focal traumatic brain injury without loss of consciousness, initial encounter (principal); Z79.01 Long term (current) use of anticoagulants; Z79.82 Long term (current) use of aspirin; Z20.822 Contact with and (suspected) exposure to COVID-19; W18.30XA Fall on same level, unspecified, initial encounter; Z23 Encounter for immunization
CPT/HCPCS: 36415; 70450; 72125; 80053; 80320; 81001; 83690; 85025; 86850; 86900; 86901; 87635; 90471; 93005; 93010; 96365; 96375; 99285; C9803; 90715